=== PATIENT | female | born 1980 ===

== ENCOUNTER 2021-05-21 09:40 | Outpatient (REF) | payer OTHER, SELFPAY ==
[2021-05-21 09:54] LABS: MANUAL DIFF FLAG NO
[2021-05-21 10:36] LABS: Basophils Percent Auto 0.5 % (0-2); Eosinophils Absolute Auto 0.1 X10*3/uL (0.0-0.4); Eosinophils Percent Auto 1.7 % (0-4); Hematocrit 38.8 % (37.0-47.0); Hemoglobin 13.1 g/dl (12.0-16.0); Imm Gran Abs Auto 0.01 X10*3/uL (0.00-0.03); Imm Gran Pct Auto 0.2 % (0.0-0.4); Lymphocytes Absolute Auto 2.3 X10*3/uL (1.2-4.9); Lymphocytes Percent Auto 36.3 % (20-40); Mean Corpuscular HGB Conc 33.8 g/dl (31.0-35.0); Mean Corpuscular Hemoglobin 30.5 pg (27.0-33.0); Mean Corpuscular Volume 90.2 fL (80.0-98.0); Monocytes Absolute Auto 0.3 X10*3/uL (0.1-1.2); Monocytes Percent Auto 5.4 % (2-11); Neutrophils Absolute Auto 3.5 x10*3/uL (2.0-8.3); Neutrophils Percent Auto 55.9 % (45-73); Platelet Count 263 X10*3/uL (160-400); Red Cell Distribution Width 11.9 % (11.0-16.0); White Blood Count 6.3 X10*3/uL (4.8-10.8)
[2021-05-21 10:56] LABS: Alanine Aminotransferase 17 U/L (0-31); Albumin Level 4.1 g/dL (3.5-5.0); Alkaline Phosphatase 80 U/L (39-117); Anion Gap 13 (12-20); Aspartate Amino Transferase 15 U/L (5-31); Bilirubin Total 0.6 mg/dL (0.0-1.0); Blood Urea Nitrogen 15 mg/dL (9-16); Calcium 9.6 mg/dL (8.4-10.2); Carbon Dioxide 24 mmol/L (22-29); Chloride 105 mmol/L (96-108); Cholesterol 172 mg/dL; Estimated Glomerular Filt Rate > 60; Glucose Fasting 162 mg/dL (60-99); HDL Cholesterol 48 mg/dL; LDL Cholesterol Calculated 103 mg/dl; Potassium 4.7 mmol/L (3.3-5.1); Sodium 137 mmol/L (135-145); Total Protein 7.1 g/dL (6.5-8.0); Triglycerides 106 mg/dL
[2021-05-21 11:19] LABS: Thyroid Stimulating Hormone 1.46 uIU/mL (0.32-4.0)
== END 2021-05-21 09:41 | disposition home or self-care (01) ==
LOC: HO.LAB 09:40
PROVIDERS: PCP Internal Medicine; Visit Provider Internal Medicine
DX: Z00.00 Encounter for general adult medical examination without abnormal findings (principal); E03.9 Hypothyroidism, unspecified; E11.9 Type 2 diabetes mellitus without complications
CPT/HCPCS: 36415; 80053; 80061; 84443; 85025

== ENCOUNTER 2022-04-29 10:18 | Outpatient (REF) | payer OTHER, SELFPAY ==
[2022-04-29 11:22] LABS: Estimated Average Glucose 171 mg/dL; Hemoglobin A1c % 7.6 %
[2022-04-29 11:36] LABS: Anion Gap 16 (12-20); Blood Urea Nitrogen 8 mg/dL (9-16); Calcium 9.2 mg/dL (8.4-10.2); Carbon Dioxide 22 mmol/L (22-29); Chloride 104 mmol/L (96-108); Estimated Glomerular Filt Rate > 60; Glucose Random 144 mg/dL (60-115); Potassium 4.4 mmol/L (3.3-5.1); Sodium 138 mmol/L (135-145)
[2022-04-29 11:49] LABS: Thyroid Stimulating Hormone 1.67 uIU/mL (0.32-4.0)
== END 2022-04-29 10:19 | disposition home or self-care (01) ==
LOC: HO.LAB 10:18
PROVIDERS: PCP Internal Medicine; Visit Provider Internal Medicine
DX: Z00.00 Encounter for general adult medical examination without abnormal findings (principal); E11.9 Type 2 diabetes mellitus without complications; R51.9 Headache, unspecified
CPT/HCPCS: 36415; 80048; 83036; 84443

== ENCOUNTER → 2022-06-13 13:07 | Outpatient (BNVA) | payer OTHER, SELFPAY | PROVIDERS: PCP Internal Medicine; Visit Provider Dietitian, Registered | DX: E11.9 Type 2 diabetes mellitus without complications (principal); Z71.3 Dietary counseling and surveillance | CPT/HCPCS: 97802 ==

== ENCOUNTER 2022-08-01 08:06 | Outpatient (REF) | payer OTHER, SELFPAY ==
[2022-08-01 09:13] LABS: Estimated Average Glucose 183 mg/dL
[2022-08-01 09:27] LABS: Cholesterol 191 mg/dL; Glucose Fasting 189 mg/dL (60-99); HDL Cholesterol 46 mg/dL; LDL Cholesterol Calculated 108 mg/dl; Triglycerides 185 mg/dL
== END 2022-08-01 08:07 | disposition home or self-care (01) ==
LOC: HO.LAB 08:06
PROVIDERS: PCP Internal Medicine; Visit Provider Internal Medicine
DX: E78.5 Hyperlipidemia, unspecified (principal); E11.65 Type 2 diabetes mellitus with hyperglycemia
CPT/HCPCS: 36415; 80061; 82947; 83036

== ENCOUNTER 2022-09-22 15:41 | Outpatient (REF) | payer OTHER, SELFPAY ==
--- NOTE | ~2022-09-22 | MM_ITS ---
EXAMINATION: MM SCREENING DIGITAL BREAST TOMOSYNTHESIS, BILATERAL CLINICAL INFORMATION: Screening. Asymptomatic. The lifetime risk of breast cancer based on the Tyrer-Cuzick Model is 8%. COMPARISON: Mammography: 06/26/2019 (baseline) TECHNIQUE: Digital breast tomosynthesis is performed in both the craniocaudal and mediolateral oblique views along with computer-aided detection (CAD). Synthesized 2D images are generated from the tomosynthesis. FINDINGS: There are scattered areas of fibroglandular density (ACR BI-RADS breast composition Category b). Parenchymal pattern is similar to prior baseline exam and there is no interval mass or architectural abnormality or developing density. The axilla and skin contours are unremarkable. Again, there are a few scattered benign round and rim calcifications. Right breast has new loosely grouped benign appearing round calcifications posterior 1:00 position. Patient will be recalled to fully characterize with magnification views. MM/MM tomosynthesis screening BI IMPRESSION: Right: -New loosely grouped benign appearing round calcifications posterior 1:00 Left: -No mammographic evidence of malignancy. ASSESSMENT: BI-RADS 0: Incomplete - Need Additional Imaging Evaluation RECOMMENDATION: 1. Additional views right breast (magnification CC, magnification LM). 2. Radiology department staff will contact the patient for additional imaging. This patient's information was entered into a reminder system with a target due date for their next mammogram.
== END 2022-09-22 15:42 | disposition home or self-care (01) ==
LOC: HO.MAMMO 15:41
PROVIDERS: Visit Provider Internal Medicine
DX: Z12.31 Encounter for screening mammogram for malignant neoplasm of breast (principal)
CPT/HCPCS: 77063; 77067

== ENCOUNTER 2022-10-06 13:34 | Outpatient (REF) | payer OTHER, SELFPAY ==
--- NOTE | ~2022-10-06 | MM_ITS ---
EXAMINATION: MM DIAGNOSTIC DIGITAL MAMMOGRAPHY, RIGHT CLINICAL INFORMATION: Recall from screening for new loosely grouped benign-appearing round calcifications mid to posterior 1:00 position. COMPARISON: Mammography: 09/22/2022 (BI-RADS 0), 06/26/2019 (baseline). TECHNIQUE: Digital mammography is performed in the following views: Magnification right CC, magnification right LM. FINDINGS: There are scattered areas of fibroglandular density (ACR BI-RADS breast composition Category b). The additional magnification views show loosely grouped round calcifications mid to posterior 1:00 position 5-8 number. Although no from 2019, chronicity is otherwise unknown. Results are provided to the patient and her spouse at time of visit. Calcifications are probably benign and will be reassessed again in 6 months to include magnification views. MM/MM added views RT IMPRESSION: Probable benign loosely grouped round calcifications mid to posterior 1:00 position right breast, new from 06/26/2019. ASSESSMENT: BI-RADS 3: Probably Benign RECOMMENDATION: Diagnostic right mammography in 6 months. This patient's information was entered into a reminder system with a target due date for their next mammogram.
== END 2022-10-06 13:35 | disposition home or self-care (01) ==
LOC: HO.MAMMO 13:34
PROVIDERS: PCP Internal Medicine; Visit Provider Internal Medicine
DX: R92.1 Mammographic calcification found on diagnostic imaging of breast (principal)
CPT/HCPCS: 77065

== ENCOUNTER 2022-10-30 07:28 | Outpatient (REF) | payer OTHER, SELFPAY ==
[2022-10-30 08:10] LABS: Estimated Average Glucose 163 mg/dL; Hemoglobin A1c % 7.3 %
[2022-10-30 08:15] LABS: Glucose Fasting 189 mg/dL (60-99)
== END 2022-10-30 07:29 | disposition home or self-care (01) ==
LOC: HO.LAB 07:28
PROVIDERS: PCP Internal Medicine; Visit Provider Internal Medicine
DX: R73.9 Hyperglycemia, unspecified (principal)
CPT/HCPCS: 36415; 82947; 83036

== ENCOUNTER 2022-11-27 07:40 | Outpatient (REF) | payer OTHER, SELFPAY ==
[2022-11-27 07:51] LABS: MANUAL DIFF FLAG NO
[2022-11-27 08:40] LABS: Basophils Percent Auto 0.7 % (0-2); Eosinophils Absolute Auto 0.1 X10*3/uL (0.0-0.4); Eosinophils Percent Auto 1.7 % (0-4); Hematocrit 37.3 % (37.0-47.0); Hemoglobin 12.4 g/dl (12.0-16.0); Imm Gran Abs Auto 0.01 X10*3/uL (0.00-0.03); Imm Gran Pct Auto 0.2 % (0.0-0.4); Lymphocytes Absolute Auto 2.2 X10*3/uL (1.2-4.9); Lymphocytes Percent Auto 40.3 % (20-40); Mean Corpuscular HGB Conc 33.2 g/dl (31.0-35.0); Mean Corpuscular Hemoglobin 30.2 pg (27.0-33.0); Mean Corpuscular Volume 90.8 fL (80.0-98.0); Mean Platelet Volume 9.7 fL (9.4-12.3); Monocytes Absolute Auto 0.4 X10*3/uL (0.1-1.2); Monocytes Percent Auto 6.5 % (2-11); Neutrophils Absolute Auto 2.7 x10*3/uL (2.0-8.3); Neutrophils Percent Auto 50.6 % (45-73); Platelet Count 262 X10*3/uL (160-400); Red Blood Count 4.11 X10*6/uL (4.20-5.50); Red Cell Distribution Width 12.2 % (11.0-16.0); White Blood Count 5.4 X10*3/uL (4.8-10.8)
[2022-11-27 09:31] LABS: Alanine Aminotransferase 19 U/L (0-31); Albumin Level 3.7 g/dL (3.5-5.0); Alkaline Phosphatase 92 U/L (39-117); Anion Gap 12 (12-20); Aspartate Amino Transferase 16 U/L (5-31); Bilirubin Total 0.4 mg/dL (0.0-1.0); Blood Urea Nitrogen 13 mg/dL (9-16); Calcium 9.1 mg/dL (8.4-10.2); Carbon Dioxide 27 mmol/L (22-29); Chloride 106 mmol/L (96-108); Cholesterol 190 mg/dL; Estimated Glomerular Filt Rate > 60; Glucose Fasting 175 mg/dL (60-99); HDL Cholesterol 50 mg/dL; LDL Cholesterol Calculated 115 mg/dl; Potassium 4.4 mmol/L (3.3-5.1); Sodium 141 mmol/L (135-145); Thyroid Stimulating Hormone 2.57 uIU/mL (0.32-4.0); Total Protein 6.6 g/dL (6.5-8.0); Triglycerides 127 mg/dL
[2022-11-28 15:17] LABS: Follicle Stimulating Hormone 9.6 mIU/mL
== END 2022-11-27 07:41 | disposition home or self-care (01) ==
LOC: HO.LAB 07:40
PROVIDERS: PCP Internal Medicine; Visit Provider Internal Medicine
DX: E78.5 Hyperlipidemia, unspecified (principal); R23.2 Flushing; E03.9 Hypothyroidism, unspecified; D64.9 Anemia, unspecified; N28.9 Disorder of kidney and ureter, unspecified
CPT/HCPCS: 36415; 80053; 80061; 83001; 83002; 84443; 85025

== ENCOUNTER 2023-01-15 11:39 | Outpatient (AMB) | payer OTHER, SELFPAY ==
--- NOTE | 2023-01-15 11:42 | A.OFFPC_ITS ---
Vital Signs 01/15/23 11:46 Height 5 ft 2 in Weight 170 lb 4 oz BMI 31.1 BP 120/80 Blood Pressure Location Lt brachial Position Sitting Intake Visit Reasons: Excessive body heat Intake Note: Patient is here today excessive body heat. 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 Required: No Field Control Inspector: Not Required per policy Accompanied by: Self / Same As Patient Allergies No Known Allergies Allergy (Verified 01/15/23 11:45) Medication List - Last Reconciled 01/15/23 by Modesto Pennington MD hydrochlorothiazide 12.5 mg PO DAILY lisinopril 10 mg PO DAILY lorazepam 1 mg PO BID PRN metformin 1,000 mg PO BID zolpidem (Ambien) 5 mg PO BEDTIME PRN Tobacco use date assessed: 01/15/23 Dental Screening Dental Screen Date: 01/15/23 Did you have a dental visit in the last 12 months?: Yes Did you have a dental problem in the last 6 months where you did not have access to dental care?: No Was dental information given to patient?: Patient has dentist HPI Excessive body heat HPI Details DM; compliant; A1C 7.4; would like to see [facility] Surgical History History of tubal ligation Family History Father No problems noted. Mother No problems noted. Social History (Updated 05/23/21 @ 10:15 by Karie Naqvi [facility]) Housing: House Alcohol intake: current Alcohol intake frequency: holidays/special occasions only Patient Tobacco Use Status: Never used Tobacco e-Cigarette/Vaping Use: Never Used Second Hand Smoke Exposure: No service: No Current occupational status: employed Current occupational exposures/hazards: No Cognitive needs: No Hearing needs: No Vision needs: No Questionnaire Thrive Questionnaire Date Thrive assessed: 08/15/22 Currently or been in a relationship where the following occur: no concerns reported GRAZYNA-7 AMB Questionnaire GRAZYNA-7 Date GRAZYNA - 7 assessed: 08/15/22 Source: Developed by Drs. Chase Muñoz, Cristal Urias, Luan Erickson and colleagues, with an educational angel luis from [employer]. Review of Systems Const Denies chills, Denies headache(s) and Denies weight loss ENT Denies headache(s) Card Denies chest pain, Denies syncope, Denies irregular heart rhythm and Denies dyspnea Resp Denies chest congestion, Denies cough and Denies dyspnea GI Denies abdominal pain, Denies change in stool character, Denies nausea and Denies vomiting Musc Denies deformity and Denies joint swelling Neuro Denies syncope and Denies headache(s) Physical exam (Primary Care) Vital Signs: Last Vital Signs BP 120/80 01/15/23 11:46 BMI result Body Mass Index 31.1 Tobacco/Smoking Status: Tobacco use Status Tobacco use date assessed 01/15/23 01/15/23 11:49 Patient Tobacco Use Status Never used Tobacco 01/15/23 11:49 e-Cigarette/Vaping Use Never Used 01/15/23 11:49 Thrive Assessment: Date of Thrive Assessment Date Thrive assessed 08/15/22 01/15/23 11:49 Currently or been in a relationship where the following occur: no concerns reported Const General: comfortable, no acute distress and alert Neck Neck: Yes no lymphadenopathy Thyroid: Thyroid normal Resp Effort & Inspection: normal respiratory effort Auscultation: clear to auscultation bilaterally Percussion: percussion normal Cardio Jugular venous distension: no JVD Palpation: normal PMI Rate: regular rate Rhythm: regular rhythm Heart sounds: S1 normal heart sound present and S2 normal heart sound present GI Inspection: Yes normal to inspection Palpation (GI): No hepatosplenomegaly present Skin General skin exam: no rashes or lesions noted Extrem General: Yes no clubbing, cyanosis or edema Assessment and Plan Assessment & Plan (1) T2DM (type 2 diabetes mellitus): Code(s): E11.9 - Type 2 diabetes mellitus without complications Plan: ref endo Orders: Referrals Endocrinology Referral E11.9 - Type 2 diabetes mellitus without complications Coding Level of Care Code Est Pt Level 3 (31281) Diagnoses T2DM (type 2 diabetes mellitus) E11.9
[2023-01-15 11:46] VITALS: BP 120/80; BMI 31.1
== END 2023-01-15 11:56 | disposition home or self-care (01) ==
PROVIDERS: PCP Internal Medicine; Visit Provider Internal Medicine
DX: E11.9 Type 2 diabetes mellitus without complications (principal)
CPT/HCPCS: 99213

== ENCOUNTER 2023-04-12 12:47 | Outpatient (REF) | payer OTHER, SELFPAY ==
--- NOTE | ~2023-04-12 | MM_ITS ---
EXAMINATION: MM DIAGNOSTIC DIGITAL BREAST TOMOSYNTHESIS, RIGHT CLINICAL INFORMATION: First 6 month follow-up right breast calcifications. COMPARISON: Mammography: 09/22/2022, 10/06/2022, 06/26/2019. TECHNIQUE: Digital right breast tomosynthesis is performed in both the craniocaudal and mediolateral oblique views along with computer-aided detection (CAD). Synthesized 2D images are generated from the tomosynthesis. In addition, spot magnification 2-D right CC and ML views were obtained. FINDINGS: There are scattered areas of fibroglandular density (ACR BI-RADS breast composition Category b). Loosely grouped calcifications are identified in the upper inner right breast, middle one third, which appear to be possibly dermal in origin on tomographic images. They have a punctate rounded appearance without any sign of tight grouping, pleomorphism, linear the or branching. These do not meet biopsy threshold. There are a few scattered similar calcifications in the breasts. These calcifications are considered benign. No further follow-up required. Otherwise, there are no suspicious masses, suspicious grouped calcifications, or areas of architectural distortion in the right breast. The parenchymal pattern is stable from prior exams. MM/MM tomosynthesis diagnostic RT IMPRESSION: There is no evidence of malignancy in the right breast. There are benign calcifications which are likely skin related. No further follow-up required. Recommend returning to screening mammography bilaterally. ASSESSMENT: BI-RADS BI-RADS 2 - Benign Findings RECOMMENDATION: 1 year F/U Results were provided to the patient at time of visit by the technologist. This patient's information was entered into a reminder system with a target due date for their next mammogram.
== END 2023-04-12 12:48 | disposition home or self-care (01) ==
LOC: HO.MAMMO 12:47
PROVIDERS: PCP Internal Medicine; Visit Provider Internal Medicine
DX: R92.1 Mammographic calcification found on diagnostic imaging of breast (principal)
CPT/HCPCS: 77061; 77065

== ENCOUNTER → 2023-04-12 13:00 | Outpatient (BNV) | payer OTHER, SELFPAY | PROVIDERS: PCP Internal Medicine; Visit Provider Radiology Diagnostic Radiology | DX: R92.1 Mammographic calcification found on diagnostic imaging of breast (principal) | CPT/HCPCS: 77061; 77065 ==

== ENCOUNTER 2023-09-28 15:44 | Outpatient (REF) | payer OTHER, SELFPAY | END 2023-09-28 15:45 | disposition home or self-care (01) | LOC: HO.MAMMO 15:44 | PROVIDERS: PCP Internal Medicine; Visit Provider Internal Medicine | DX: Z12.31 Encounter for screening mammogram for malignant neoplasm of breast (principal) | CPT/HCPCS: 77063; 77067 ==

== ENCOUNTER → 2023-09-28 16:00 | Outpatient (BNV) | payer OTHER, SELFPAY | PROVIDERS: PCP Internal Medicine; Visit Provider Radiology Diagnostic Radiology | DX: Z12.31 Encounter for screening mammogram for malignant neoplasm of breast (principal) | CPT/HCPCS: 77063; 77067 ==

== ENCOUNTER 2024-02-20 08:27 | Outpatient (AMB) | payer OTHER, SELFPAY ==
[2024-02-20 08:30] VITALS: BP 130/72; PULSE 103; O2SAT 97; BMI 30.5
--- NOTE | 2024-02-20 08:30 | A.OFFPC_ITS ---
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: No Accompanied by: Self / Same As Patient Allergies No Known Allergies Allergy (Verified 02/20/24 08:35) Medication List - Last Reconciled 02/21/24 by Modesto Pennington MD empagliflozin (Jardiance) 10 mg PO DAILY hydrochlorothiazide 12.5 mg PO DAILY lisinopril 10 mg PO DAILY lorazepam 1 mg PO BID PRN metformin 1,000 mg PO BID zolpidem (Ambien) 5 mg PO BEDTIME PRN Tobacco use date assessed: 02/20/24 Dental Screening Dental Screen Date: 02/20/24 Did you have a dental visit in the last 12 months?: Yes Did you have a dental problem in the last 6 months where you did not have access to dental care?: No Was dental information given to patient?: Patient has dentist HPI Palpitations&StomachPain HPI Details occasional palpitations for a month; ruq abd pain PFSH Surgical History History of tubal ligation Family History Father No problems noted. Mother No problems noted. Social History (Updated 05/23/21 @ 10:15 by Karie Naqvi [facility]) Housing: House Alcohol intake: current Alcohol intake frequency: holidays/special occasions only Patient Tobacco Use Status: Never used Tobacco Tobacco use type: Cigarette e-Cigarette/Vaping Use: Never Used Second Hand Smoke Exposure: No service: No Current occupational status: employed Current occupational exposures/hazards: No Cognitive needs: No Hearing needs: No Vision needs: No Questionnaire PHQ-9 Over the last 2 weeks, how often have you been bothered by any of the following problems? 1. Little interest or pleasure in doing things: not at all 2. Feeling down, depressed, or hopeless: not at all 3. Trouble falling or staying asleep, or sleeping too much: not at all 4. Feeling tired or having little energy: not at all 5. Poor appetite or overeating: not at all 6. Feeling bad about yourself - or that you are a failure or have let yourself or your family down: not at all 7. Trouble concentrating on things, such as reading the newspaper or watching television: not at all 8. Moving or speaking so slowly that other people could have noticed. Or the opposite - being so fidgety or restless that you have been moving around a lot more than usual: not at all 9. Thoughts that you would be better off or of hurting yourself in some way: not at all Total score: 0 04108 - PHQ-9 Billing: Yes Source: Developed by Drs. Chase Muñoz, Cristal Urias, Luan Erickson and colleagues, with an educational angel luis from [employer]. Thrive Questionnaire Date Thrive assessed: 02/20/24 I am a: Patient What is your living situation today?: I have a steady place to live Within the past 12 months, did the food you bought not last and you didn't have the money to get more?: Never true Within the past 12 months, did you worry whether your food would run out before you got money to buy more?: Never true THRIVE Score: 0 AUDIT C Alcohol Use Questionnaire (AUDIT-C) 1. How often do you have a drink containing alcohol?: Monthly or less 2. How many drinks containing alcohol do you have on a typical day when you are drinking?: 3 or 4 3. How often do you have six or more drinks on one occasion?: Never Total Score: 2 Score Reviewed/Action Taken: Yes GRAZYNA-7 AMB Questionnaire GRAZYNA-7 Date GRAZYNA - 7 assessed: 02/20/24 Feeling nervous, anxious, or on edge: 1 = Several days Not being able to stop or control worryin = Several days Worrying too much about different things: 1 = Several days Trouble relaxin = Several days Being so restless that it is hard to sit still: 2 = More than half the days Becoming easily annoyed or irritable: 2 = More than half the days Feeling afraid as if something awful might happen: 2 = More than half the days Total GRAZYNA-7 score (0-4 normal; 5-9 mild; 10-14 moderate; 15-21 severe): 10 Source: Developed by Drs. Chase Muñoz, Cristal Urias, Luan Erickson and colleagues, with an educational angel luis from [employer]. GRAZYNA-7 Assessment Billing GRAZYNA-7 Assessment Tool: GRAZYNA-7 Assessment 28390 Review of Systems Const Denies chills, Denies headache(s) and Denies weight loss ENT Denies headache(s) Card Denies chest pain, Denies syncope and Denies dyspnea Resp Denies chest congestion, Denies cough and Denies dyspnea GI Denies change in stool character, Denies nausea and Denies vomiting Musc Denies deformity and Denies joint swelling Neuro Denies syncope and Denies headache(s) Physical exam (Primary Care) Vital Signs: Last Vital Signs Pulse 103 H 02/20/24 08:30 BP 130/72 02/20/24 08:30 Pulse Ox 97 02/20/24 08:30 Oxygen Delivery Method Room Air 02/20/24 08:30 BMI result Body Mass Index 30.5 Tobacco/Smoking Status: Tobacco use Status Tobacco use date assessed 02/20/24 02/20/24 08:41 Patient Tobacco Use Status Never used Tobacco 02/20/24 08:32 Tobacco use type Cigarette 02/20/24 08:41 e-Cigarette/Vaping Use Never Used 02/20/24 08:32 PHQ-9: PHQ-9 Score PHQ-9: Total score 0 02/20/24 08:41 Thrive Assessment: Date of Thrive Assessment Date Thrive assessed 02/20/24 02/20/24 08:41 Results AMB Hemoglobin A1c AMB Hemoglobin A1c 7.6 % Last Edit by Cordelia Paz CMA on 02/20/24 08:47 Results Reviewed Results Reviewed: Laboratory Last Values Hgb A1c (Clinic) 7.6 % (4.0-6.0) H 02/20/24 08:47 Assessment and Plan Assessment & Plan (1) Intermittent palpitations: Code(s): R00.2 - Palpitations Plan: EKG and labs; probably benign Orders: Orders US abdomen complete 02/20/24 R10.9 - Unspecified abdominal pain ECG 12 lead EKG 02/20/24 R00.2 - Palpitations AMB Hemoglobin A1c 02/20/24 E11.9 - Type 2 diabetes mellitus without complications Thyroid Stimulating Hormone 02/20/24 Z13.29 - Encounter for screening for other suspected endocrine disorder Medications: Refilled lisinopril 10 mg PO DAILY 90 tabs 0RF lorazepam 1 mg PO BID PRN 20 tabs 0RF anxiety zolpidem (Ambien) 5 mg PO BEDTIME PRN 30 tabs 3RF sleep metformin 1,000 mg PO BID 180 tabs 8RF Coding Level of Care Code Est Pt Level 3 (26790) Diagnoses Intermittent palpitations R00.2 Additional Codes GRAZYNA-7 Assessment Billing - GRAZYNA-7 Assessment Tool: GRAZYNA-7 Assessment 59446 ([id number])
== END 2024-02-20 08:59 | disposition home or self-care (01) ==
PROVIDERS: PCP Internal Medicine; Visit Provider Internal Medicine
DX: E11.9 Type 2 diabetes mellitus without complications (principal)
CPT/HCPCS: 83036; 99213

== ENCOUNTER 2024-03-01 09:35 | Outpatient (REF) | payer OTHER, SELFPAY ==
[2024-03-01 11:13] LABS: Thyroid Stimulating Hormone 1.29 uIU/mL (0.32-4.0)
== END 2024-03-01 09:36 | disposition home or self-care (01) ==
LOC: HO.LAB 09:35
PROVIDERS: PCP Internal Medicine; Visit Provider Internal Medicine
DX: Z13.29 Encounter for screening for other suspected endocrine disorder (principal)
CPT/HCPCS: 36415; 84443

== ENCOUNTER 2024-03-04 19:22 | Emergency (ER) | payer OTHER, SELFPAY ==
--- NOTE | 2024-03-04 | ECG_ITS ---
Test Reason : CHEST PAIN Blood Pressure : / mmHG Vent. Rate : 093 BPM Atrial Rate : 093 BPM P-R Int : 152 ms QRS Dur : 066 ms QT Int : 344 ms P-R-T Axes : 026 054 055 degrees QTc Int : 427 ms Normal sinus rhythm Normal ECG When compared with ECG of 24-APR-2004 16:01, T wave amplitude has decreased in Anterior leads Referred By: Generic ED Physician Electronically Signed By:ASHA WESTFALL
--- NOTE | ~2024-03-04 | CT_ITS ---
EXAMINATION: CT ABDOMEN AND PELVIS WITH CONTRAST CLINICAL INFORMATION: Reason for Exam RUQ pain, postprandial, hx cholecystectomy COMPARISON: None available. TECHNIQUE: Multidetector volumetric images were obtained from the superior aspect of the liver through the pubic symphysis following administration 85 mL of Omnipaque 350 intravenous contrast. Sagittal and coronal reformatted images were obtained on the technologist's workstation. Oral contrast: No This CT examination was performed using dose optimization techniques as appropriate, variously including the following: *Automated exposure control *Adjustment of mA and/or kV according to patient size (this includes techniques or standardized protocols for targeted exams where dose is matched to indication/reason for exam; i.e. extremities or head) *Use of iterative reconstruction technique DLP: 722 mGy-cm FINDINGS: LUNG BASES: Minimal bibasilar atelectasis. A few scattered nodular foci are present along the pleura measuring up to 6 x 3 mm (average diameter 4.5 mm) on the left on image 142/[id number]. There is also a small nodule along the right minor fissure suggestive of a lymph node. LIVER, GALLBLADDER, AND BILIARY TREE: The liver is normal in size, shape, and attenuation. No focal hepatic lesion or biliary ductal dilatation is present. Patient is status post cholecystectomy. PANCREAS: Unremarkable. SPLEEN: Unremarkable. ADRENAL GLANDS: Unremarkable. KIDNEYS AND URETERS: Bilateral nephrograms are symmetric. No hydronephrosis or obstructing calculus identified. BLADDER: Minimally distended and suboptimally evaluated. GASTROINTESTINAL TRACT: No evidence of bowel obstruction. Colonic diverticulosis without convincing diverticulitis. The appendix is unremarkable. No free fluid or free air is seen. ABDOMINAL WALL: No significant hernia is appreciated. LYMPH NODES: Normal. VASCULAR: Unremarkable. PELVIC VISCERA: Unremarkable. OSSEOUS STRUCTURES: Multilevel degenerative changes in the spine. Nonspecific sclerotic foci in the T10 and L4 vertebral bodies. CT/CT abdomen pelvis w IV con IMPRESSION: 1. No acute findings identified in the abdomen/pelvis. Status post cholecystectomy. 2. Nonspecific sclerotic foci in the T10 and L4 vertebral bodies which may represent bone islands. In the proper clinical setting, sclerotic metastatic foci could also have this appearance. 3. Few small subpleural nodular foci in the lungs, nonspecific. According to the UPDATED 2017 Fleischner Society recommendations, the advised follow-up imaging for solid nodules < 6 mm is: LOW RISK PATIENT: No routine follow-up. HIGH RISK PATIENT: Optional CT at 12 months. Electronically signed by: Brandon Apple MD 03/05/2024 03:06 AM EDT RP
[2024-03-04 19:28] VITALS: BP 150/103; PULSE 89; RESP 18; TEMP 36.6; O2SAT 98
--- NOTE | 2024-03-04 19:34 | ED.GENADULT ---
HPI - General Adult General Chief complaint: General Medical Stated complaint: chest feels tight/sob/palpitations/ belly pain Time Seen by Provider: 03/04/24 23:27 Source: patient Mode of arrival: ambulatory Limitations: no limitations History of Present Illness HPI narrative: Patient is a 43-year-old female who presents emergency department for evaluation of 2-3 weeks with chest tightness, palpitations, abdominal pain, nausea. She states that she experiences these symptoms postprandial approximately 15-20 minutes. It starts with the chest tightness and pain that radiates to the epigastric in her right upper quadrant with diffuse abdominal bloating. Developed nausea but has not experienced any vomiting. Admits to subsequent palpitations but she thinks that this is due to anxiety regarding the degree of her pain. She admits to a history of cholecystectomy approximately 10 years ago. Related Data Home Medications ?Medication ?Instructions ?Recorded ?Confirmed empagliflozin 10 mg tablet 10 mg PO DAILY 02/20/24 02/21/24 (Jardiance) Previous Rx's ?Medication ?Instructions ?Recorded hydrochlorothiazide 12.5 mg capsule 12.5 mg PO DAILY #30 caps 01/22/24 lisinopril 10 mg tablet 10 mg PO DAILY #90 tabs 02/20/24 metformin 1,000 mg tablet 1,000 mg PO BID #180 tabs 02/20/24 zolpidem 5 mg tablet (Ambien) 5 mg PO BEDTIME PRN sleep #30 tabs 02/20/24 lorazepam 1 mg tablet 1 mg PO BID PRN anxiety #20 tabs 02/27/24 Allergies Allergy/AdvReac Type Severity Reaction Status Date / Time No Known Allergies Allergy Verified 03/04/24 19:36 Review of Systems Review of Systems: Yes all other systems are reviewed and are negative [facility] Past Medical History Attestation statement: The following information was validated with the patient. Source: old records reviewed Surgical History History of tubal ligation Family History Family History Father No problems noted. Mother No problems noted. Social History Social History (Updated 05/23/21 @ 10:15 by Karie Naqvi Junior) Housing: House Alcohol intake: current Alcohol intake frequency: does not drink Patient Tobacco Use Status: Never used Tobacco Tobacco use type: Cigarette Smoked in Last 30 Days: No e-Cigarette/Vaping Use: Never Used Second Hand Smoke Exposure: No Use of substances other than those prescribed or required for medical reasons: No Advance Directives: No Advance Directives Information Provided: No Do you have a plan to hurt others: No Plan service: No Current occupational status: employed Current occupational exposures/hazards: No Cognitive needs: No Hearing needs: No Vision needs: No Physical Exam ED Vital Signs: Vital Signs - 24 hr 03/04/24 19:28 03/04/24 22:27 03/05/24 00:11 Temperature 97.9 F 97.7 F Pulse Rate 89 84 77 Respiratory Rate 18 18 18 Blood Pressure 150/103 H 148/98 H 128/77 Pulse Oximetry 98 99 98 Oxygen Delivery Method Room Air Room Air 03/05/24 02:45 03/05/24 06:23 Temperature 97.5 F 97.6 F Pulse Rate 85 67 Respiratory Rate 18 18 Blood Pressure 129/84 117/82 Pulse Oximetry 97 97 Oxygen Delivery Method Room Air Room Air BMI result Body Mass Index 30.0 Appearance: Alert.?Oriented to person, place and time. No acute distress.?Normal affect. Eyes: Pupils equal, round and reactive to light.? ENT: Pharynx normal.?? Neck: Normal inspection.? Neck supple.?? CVS: Heart sounds normal. Normal heart rate and rhythm.? Pulses normal.?? Respiratory: No respiratory distress.? Lung sounds clear to auscultation bilaterally?? Abdomen: Soft right upper quadrant tenderness upon palpation Normoactive bowel sounds. No pulsatile mass.?? Skin: Skin warm and dry.? Normal skin color.? Extremities: No lower extremity edema.? No calf ttp? Neuro: Moves all extremities spontaneously. Sensation intact bilaterally. Ambulates with normal steady gait. Course Course Course Narrative: This is an RME done by BRANDON Garrison: Additional HPI, ROS, PE not included below will be deferred to primary provider. 43yo F with PMHx HTN, T2DM presenting with chest pain/tightness and palpitations intermittently over past few weeks. Precipitated by eating. Appearance: Alert.? Oriented X3.? No acute cardiopulmonary distress distress.? Head: Normocephalic, atraumatic CVS: Pulses normal.? Respiratory: No respiratory distress.? Skin: ? Normal skin color. Neuro: Oriented X 3.? Reevaluation(s) Reevaluation #1: Patient signed out to ED attending Dr. Lyons pending CT AP Time: 01:55 Reevaluation #2: CT abdomen pelvis shows no acute pathology, nonspecific lung nodule patient was made aware of a to follow-up with her PCP. Time: 06:55 Medications Administered Discontinued Medications Generic Name Dose Route Start Last Admin Trade Name Freq PRN Reason Stop Dose Admin Sodium Chloride 1,000 mls @ 999 mls/hr 03/04/24 23:45 03/05/24 01:25 Ns IV 03/05/24 00:45 Infused .Q1H1M CHELY Infusion Iohexol 85 ml 03/05/24 00:38 03/05/24 00:39 Iohexol 350 Mg/Ml 100 Ml Infus..Btl IV 03/05/24 00:39 85 ml ONCE ONE Administration Pantoprazole Sodium 40 mg 03/04/24 23:51 03/05/24 00:02 Pantoprazole Sodium 40 Mg/10 Ml Vial IVPUSH 03/04/24 23:52 40 mg ONCE ONE Administration Medical Decision Making Medical Decision Making MDM Narrative: Patient is a 43-year-old female past medical history of tubal ligation, type 2 diabetes, hypertension presenting to emergency department for evaluation of chest pain palpitations abdominal pain and nausea as per HPI. On review of medical record she was evaluated by her primary care doctor, Dr. Salvador most recently 8 10/21/2023 for evaluation of palpitations and right upper quadrant abdominal pain outpatient ultrasound was ordered at that time has yet to be completed. On evaluation of serum labs obtained prior to my assumption of care CBC is without leukocytosis anemia or thrombocytopenia. No electrolyte derangement. No DINESH. Non-anion gap hyperglycemia; random glucose 171. LFTs lipase within normal range. High sensitive troponin below detectable limits, EKG revealing normal sinus rhythm with ventricular rate of 93, QTC 427, no ST elevation, no ST depression, no T-wave inversion, unlikely secondary to ACS given duration of symptoms.. Viral panel is negative. Given history of cholecystectomy, plan to obtain CT of the abdomen and pelvis for further evaluation, concern that ultrasound in the not visualize CBD stone, and may have physiologic dilation as she has S/P cholecystectomy. At this time she declines any analgesic or antiemetic. This case with ED attending Dr. Acosta who agrees with plan of care. Differential Diagnosis Differential Diagnoses: The differential diagnosis associated with the presentation includes (Gastritis, PUD, CBD stone, hepatitis, pneumonia. Wells negative, unlikely pulmonary embolism) Admission/Observation Consideration of admission/observation: Escalation of care including admission/observation considered Lab Data MDM Lab Attestation statement: I reviewed the patient's lab results. (Narrative above) 03/04/24 19:45 03/04/24 19:45 Labs: Lab Results 03/04/24 Range/Units 19:45 WBC 6.8 (4.8-10.8) X10*3/uL RBC 4.42 (4.20-5.50) X10*6/uL Hgb 13.3 (12.0-16.0) g/dl Hct 38.4 (37.0-47.0) % MCV 86.9 (80.0-98.0) fL MCH 30.1 (27.0-33.0) pg MCHC 34.6 (31.0-35.0) g/dl RDW 12.6 (11.0-16.0) % Plt Count 255 (160-400) X10*3/uL MPV 9.7 (9.4-12.3) fL Immature Gran % (Auto) 0.1 (0.0-0.4) % Neut % (Auto) 47.6 (45-73) % Lymph % (Auto) 44.3 H (20-40) % Kinney % (Auto) 6.4 (2-11) % Eos % (Auto) 0.9 (0-4) % Baso % (Auto) 0.7 (0-2) % Lymph # (Auto) 3.0 (1.2-4.9) X10*3/uL Kinney # (Auto) 0.4 (0.1-1.2) X10*3/uL Eos # (Auto) 0.1 (0.0-0.4) X10*3/uL Baso # (Auto) 0.1 (0.0-0.2) X10*3/uL Abs Immat Gran (auto) 0.01 (0.00-0.03) X10*3/uL Absolute Neuts (auto) 3.2 (2.0-8.3) x10*3/uL Absolute Nucleated RBC 0.000 (0.0-0.012) X10*3/uL Nucleated RBC % (auto) 0.0 (0.0-0.2) /100WBC PT 11.0 L (11.1-13.3) SEC INR 0.9 (0.9-1.1) Sodium 138 (135-145) mmol/L Potassium 3.9 (3.3-5.1) mmol/L Chloride 103 (96-108) mmol/L Carbon Dioxide 28 (22-29) mmol/L Anion Gap 11 L (12-20) BUN 13 (9-16) mg/dL Creatinine 0.68 (0.5-1.4) mg/dL Estim Creat Clear Calc 98.6 Estimated GFR > 60 Random Glucose 171 H (60-115) mg/dL Calcium 10.0 D (8.4-10.2) mg/dL Magnesium 2.0 (1.6-2.6) mg/dL Total Bilirubin 0.4 (0.0-1.0) mg/dL AST 22 (5-31) U/L ALT 22 (0-31) U/L Alkaline Phosphatase 84 (39-117) U/L Troponin I High Sens < 2.7 (<3.5-17.0) ng/L Total Protein 7.2 (6.5-8.0) g/dL Albumin 4.1 (3.5-5.0) g/dL Lipase 30 (8-78) U/L Beta HCG, Quant < 2 mIU/mL Influenza Type A (PCR) NEGATIVE (Negative) Influenza Type B (PCR) NEGATIVE (Negative) RSV RNA Qual (PCR) NEGATIVE (Negative) SARS-CoV-2 RNA (RT-PCR) NEGATIVE (Negative) Radiology Impression Discussion of test interpretation with radiology: I have reviewed the radiologist's reading. Independent Historian Clinical information obtained from an independent historian. History obtained from or confirmed by: Spouse External Record Review External record reviewed: Outpatient record Tests considered The following testing was considered but not selected: See narrative above, ultrasound deferred Prescription Management I considered prescription management with: Pain Medication Discharge Plan Discharge Clinical Impression: Abdominal pain, Lung nodule Patient Disposition: Home, Self-Care Instructions: Abdominal Pain (ED), Pulmonary Nodules (ED) Prescriptions: No Action hydrochlorothiazide 12.5 mg capsule 12.5 mg PO DAILY Qty: 30 8RF lorazepam 1 mg tablet 1 mg PO BID PRN (Reason: anxiety) Qty: 20 0RF Jardiance 10 mg tablet 10 mg PO DAILY lisinopril 10 mg tablet 10 mg PO DAILY Qty: 90 0RF metformin 1,000 mg tablet 1,000 mg PO BID Qty: 180 8RF zolpidem [Ambien] 5 mg tablet 5 mg PO BEDTIME PRN (Reason: sleep) Qty: 30 3RF Referrals: Modesto Pennington MD [Primary Care Provider] - Print Language: Lithuanian
[2024-03-04 19:49] LABS: MANUAL DIFF FLAG NO
[2024-03-04 19:57] LABS: INTERNATIONAL NORM RATIO 0.9 (0.9-1.1)
[2024-03-04 20:01] LABS: Basophils Absolute Auto 0.1 X10*3/uL (0.0-0.2); Basophils Percent Auto 0.7 % (0-2); Eosinophils Absolute Auto 0.1 X10*3/uL (0.0-0.4); Eosinophils Percent Auto 0.9 % (0-4); Hematocrit 38.4 % (37.0-47.0); Hemoglobin 13.3 g/dl (12.0-16.0); Imm Gran Abs Auto 0.01 X10*3/uL (0.00-0.03); Imm Gran Pct Auto 0.1 % (0.0-0.4); Lymphocytes Percent Auto 44.3 % (20-40); Mean Corpuscular HGB Conc 34.6 g/dl (31.0-35.0); Mean Corpuscular Hemoglobin 30.1 pg (27.0-33.0); Mean Corpuscular Volume 86.9 fL (80.0-98.0); Mean Platelet Volume 9.7 fL (9.4-12.3); Monocytes Absolute Auto 0.4 X10*3/uL (0.1-1.2); Monocytes Percent Auto 6.4 % (2-11); Neutrophils Absolute Auto 3.2 x10*3/uL (2.0-8.3); Neutrophils Percent Auto 47.6 % (45-73); Platelet Count 255 X10*3/uL (160-400); Red Blood Count 4.42 X10*6/uL (4.20-5.50); Red Cell Distribution Width 12.6 % (11.0-16.0); White Blood Count 6.8 X10*3/uL (4.8-10.8)
[2024-03-04 20:08] LABS: Alanine Aminotransferase 22 U/L (0-31); Albumin Level 4.1 g/dL (3.5-5.0); Alkaline Phosphatase 84 U/L (39-117); Anion Gap 11 (12-20); Aspartate Amino Transferase 22 U/L (5-31); Bilirubin Total 0.4 mg/dL (0.0-1.0); Blood Urea Nitrogen 13 mg/dL (9-16); Carbon Dioxide 28 mmol/L (22-29); Chloride 103 mmol/L (96-108); Creatinine Clr Calc Pharmacy 98.6; Estimated Glomerular Filt Rate > 60; Glucose Random 171 mg/dL (60-115); Lipase 30 U/L (8-78); Potassium 3.9 mmol/L (3.3-5.1); Sodium 138 mmol/L (135-145); Total Protein 7.2 g/dL (6.5-8.0)
[2024-03-04 20:20] LABS: HCG Quantitative < 2 mIU/mL; Troponin-I High Sensitivity < 2.7 ng/L (<3.5-17.0)
[2024-03-04 20:30] LABS: Influenza A PCR NEGATIVE (Negative); Influenza B PCR NEGATIVE (Negative); Resp Syncy Virus RNA Qual PCR NEGATIVE (Negative); SARS COV2 PCR INHOUSE NEGATIVE (Negative)
[2024-03-04 22:27] VITALS: BP 148/98; PULSE 84; RESP 18; O2SAT 99
[2024-03-05] MEDS: 0.9 % Sodium Chloride 1,000 ML 999 ML IV (00:02)
[2024-03-05] MEDS: Pantoprazole Sodium 40 MG/10 ML VIAL IVPUSH (00:02)
--- NOTE | 2024-03-05 00:05 | PC.NURSE ---
Pt ca&ox4, no signs of distress Pt reports 6/10 cp, abd pain Pt medicated per aug Ct with pt at this time. Pts family at bedside Plan of care ongoing.
[2024-03-05 00:11] VITALS: BP 128/77; PULSE 77; RESP 18; TEMP 36.5; O2SAT 98
[2024-03-05] MEDS: iohexoL 350 MG/ML 100 ML INFUS..BTL 85 ML IV (00:39)
[2024-03-05 02:45] VITALS: BP 129/84; PULSE 85; RESP 18; TEMP 36.4; O2SAT 97
[2024-03-05 06:23] VITALS: BP 117/82; PULSE 67; RESP 18; TEMP 36.4; O2SAT 97
[2024-03-05 08:00] VITALS: BP 120/84; PULSE 65; RESP 18; TEMP 36.8; O2SAT 98
[2024-03-05 09:15] VITALS: BP 117/82; PULSE 67; RESP 18; TEMP 36.8; O2SAT 97
== END 2024-03-05 09:18 | disposition home or self-care (01) ==
PROVIDERS: Physician Assistant; Emergency Provider Internal Medicine; PCP Internal Medicine
DX: R10.11 Right upper quadrant pain (principal); R91.1 Solitary pulmonary nodule; Z03.818 Encounter for observation for suspected exposure to other biological agents ruled out; E11.9 Type 2 diabetes mellitus without complications; I10 Essential (primary) hypertension; Z79.84 Long term (current) use of oral hypoglycemic drugs; Z79.899 Other long term (current) drug therapy
CPT/HCPCS: 0241U; 36415; 74177; 80053; 83690; 83735; 84484; 84702; 85025; 85610; 93005; 96361; 96374; 99284; 99285; J2470; Q9967

== ENCOUNTER 2024-03-24 14:30 | Outpatient (AMB) | payer OTHER, SELFPAY ==
--- NOTE | 2024-03-24 14:32 | A.OFFPC_ITS ---
Vital Signs 03/24/24 14:33 Height 5 ft 2 in Weight 167 lb BMI 30.5 BP 140/72 H Blood Pressure Location Lt brachial Position Sitting Pulse 88 Pulse Source Pulse Oximeter Pulse Oximetry (%) 97 Oxygen Delivery Method Room Air Intake Visit Reasons: [facility] 03/05 Chest & Abdom Pain Grain Combiner Required: No Accompanied by: Self / Same As Patient Allergies No Known Allergies Allergy (Verified 03/24/24 14:34) Medication List - Last Reconciled 03/25/24 by Modesto Pennington MD empagliflozin (Jardiance) 10 mg PO DAILY hydrochlorothiazide 12.5 mg PO DAILY lisinopril 10 mg PO DAILY lorazepam 1 mg PO BID PRN metformin 1,000 mg PO BID zolpidem (Ambien) 5 mg PO BEDTIME PRN Tobacco use date assessed: 02/20/24 Dental Screening Dental Screen Date: 02/20/24 HPI [facility] 03/05 Chest & Abdom Pain HPI Details ER visit with RUQ abd pain; had a cholecystectomy in the past; CT unremarkable [facility] Surgical History History of tubal ligation Family History Father No problems noted. Mother No problems noted. Social History (Updated 05/23/21 @ 10:15 by Karie Naqvi [facility]) Housing: House Alcohol intake: current Alcohol intake frequency: does not drink Patient Tobacco Use Status: Never used Tobacco Tobacco use type: Cigarette e-Cigarette/Vaping Use: Never Used Second Hand Smoke Exposure: No service: No Current occupational status: employed Current occupational exposures/hazards: No Cognitive needs: No Hearing needs: No Vision needs: No Questionnaire PHQ-9 Over the last 2 weeks, how often have you been bothered by any of the following problems? 1. Little interest or pleasure in doing things: not at all 2. Feeling down, depressed, or hopeless: not at all 3. Trouble falling or staying asleep, or sleeping too much: not at all 4. Feeling tired or having little energy: not at all 5. Poor appetite or overeating: not at all 6. Feeling bad about yourself - or that you are a failure or have let yourself or your family down: not at all 7. Trouble concentrating on things, such as reading the newspaper or watching television: not at all 8. Moving or speaking so slowly that other people could have noticed. Or the opposite - being so fidgety or restless that you have been moving around a lot more than usual: not at all 9. Thoughts that you would be better off or of hurting yourself in some way: not at all Total score: 0 66088 - PHQ-9 Billing: Yes Source: Developed by Drs. Chase Muñoz, Cristal Urias, Luan Erickson and colleagues, with an educational angel luis from [employer]. Thrive Questionnaire Date Thrive assessed: 02/20/24 AUDIT C Alcohol Use Questionnaire (AUDIT-C) 1. How often do you have a drink containing alcohol?: Monthly or less 2. How many drinks containing alcohol do you have on a typical day when you are drinking?: 3 or 4 3. How often do you have six or more drinks on one occasion?: Never Total Score: 2 Score Reviewed/Action Taken: Yes GRAZYNA-7 AMB Questionnaire GRAZYNA-7 Date GRAZYNA - 7 assessed: 02/20/24 Source: Developed by Drs. Chase Muñoz, Cristal Urias, Luan Erickson and colleagues, with an educational angel luis from [employer]. Review of Systems Const Denies chills, Denies headache(s) and Denies weight loss ENT Denies headache(s) Card Denies chest pain, Denies syncope, Denies irregular heart rhythm and Denies dyspnea Resp Denies chest congestion, Denies cough and Denies dyspnea GI Denies change in stool character, Denies nausea and Denies vomiting Musc Denies deformity and Denies joint swelling Neuro Denies syncope and Denies headache(s) Physical exam (Primary Care) Vital Signs: Last Vital Signs Pulse 88 03/24/24 14:33 BP 140/72 H 03/24/24 14:33 Pulse Ox 97 03/24/24 14:33 Oxygen Delivery Method Room Air 03/24/24 14:33 BMI result Body Mass Index 30.5 Tobacco/Smoking Status: Tobacco use Status Tobacco use date assessed 02/20/24 03/24/24 14:36 Patient Tobacco Use Status Never used Tobacco 03/24/24 14:36 Tobacco use type Cigarette 03/24/24 14:36 e-Cigarette/Vaping Use Never Used 03/24/24 14:36 PHQ-9: PHQ-9 Score PHQ-9: Total score 0 03/24/24 14:37 Thrive Assessment: Date of Thrive Assessment Date Thrive assessed 02/20/24 03/24/24 14:36 Coding Level of Care Code Est Pt Level 3 (06066) Diagnoses Abdominal pain R10.9
[2024-03-24 14:33] VITALS: BP 140/72; PULSE 88; O2SAT 97; BMI 30.5
== END 2024-03-24 14:45 | disposition home or self-care (01) ==
PROVIDERS: PCP Internal Medicine; Visit Provider Internal Medicine
DX: R10.9 Unspecified abdominal pain (principal)

== ENCOUNTER → 2024-03-24 14:30 | Outpatient (BNVA) | payer OTHER, SELFPAY | PROVIDERS: PCP Internal Medicine; Visit Provider Internal Medicine | DX: R10.11 Right upper quadrant pain (principal); Z90.49 Acquired absence of other specified parts of digestive tract | CPT/HCPCS: 96127 ==

== ENCOUNTER 2024-08-25 14:07 | Outpatient (AMB) | payer OTHER, SELFPAY ==
--- NOTE | 2024-08-25 14:08 | MHC.OFFVIS ---
Vital Signs 08/25/24 14:09 Height 5 ft 2 in Weight 169 lb 12.095 oz BMI 31.0 BP 147/92 H Blood Pressure Location Lt brachial Position Sitting Pulse 94 Intake Visit Reasons: Abdominal pain Intake Note: Mehrdad presents in the office as a new patient for abdominal pains. CC: She states that she is having on and off pains in the RUQ. She states that she has been having heartburn and bad chest pains. She states she is having the same symptoms as she had when her gall bladder had to be removed. She states she had her gall bladder removed about 10 years ago. Local Area Network Administrator Required: No Allergies No Known Allergies Allergy (Verified 08/25/24 14:13) HPI Comments Details: 44 y.o F with PMH of CCY 2018, who is here for RUQ pain. Pain started almost 6 months ago and comes and goes. Triggered by eating certain foods. Reminiscent of biliary colic but pt is s/p CCY as above. Pain lasts almost an hour. Sometimes also assoc with palpitations but has had cardiac w/up which was negative per her report. Nausea + , no vomiting. Bloating +. No change in appetite. No unintentional weight loss. No fevers or chills. No recent travel. Takes CAM supplements: Ashwagandha Parsley Hibiscus tea Bitter melon [place] 07/2024 (Dr Luna) - one polyp - recall in 10 years. [facility] Medical History (Updated 08/25/24 @ 16:30 by Maribeth Kim MD) Intermittent palpitations Hypertension T2DM (type 2 diabetes mellitus) Surgical History (Updated 08/25/24 @ 16:26 by Maribeth Kim MD) Hx of cholecystectomy Hx of colonoscopy History of tubal ligation Family History Father No problems noted. Mother No problems noted. Social History Housing: House Alcohol intake: current Alcohol intake frequency: does not drink Patient Tobacco Use Status: Never used Tobacco Tobacco use type: Cigarette e-Cigarette/Vaping Use: Never Used Second Hand Smoke Exposure: No service: No Current occupational status: employed Current occupational exposures/hazards: No Cognitive needs: No Hearing needs: No Vision needs: No Review of Systems Const All systems reviewed & are unremarkable except as noted in HPI and below Physical Exam Vital Signs: Last Vital Signs Pulse 94 08/25/24 14:09 BP 147/92 H 08/25/24 14:09 BMI result Body Mass Index 31.0 No apparent distress Nonicteric Abdomen soft, nondistended Alert and oriented x3, normal gait Assessment & Plan Assessment & Plan (1) Colicky RUQ abdominal pain: Code(s): R10.11 - Right upper quadrant pain Category: Medical (2) Hx of cholecystectomy: Code(s): Z90.49 - Acquired absence of other specified parts of digestive tract Category: Surgical (3) Abnormal CT of thoracic spine: Code(s): R93.7 - Abnormal findings on diagnostic imaging of other parts of musculoskeletal system Category: Medical Plan Ddx include CBD stones, SOD, PUD, celiac. Pt also noted to have finding of sclerotic lesions in T10 and L4 ? referred pain. Plan: - Labs as below - US Abd - EGD to be booked - CT abd/pel with contrast ordered for f./up of bone lesions noted 02/2024 Follow up 8 weeks Orders: Orders Comprehensive Met. Panel Today R10.11 - Right upper quadrant pain TSH reflex Free T4 Today R10.11 - Right upper quadrant pain Immunoglobulin A Today R10.11 - Right upper quadrant pain US abdomen complete Today R10.11 - Right upper quadrant pain Complete Blood Count no Diff Today R10.11 - Right upper quadrant pain Transglutaminase IgA Today R10.11 - Right upper quadrant pain CT abdomen pelvis w IV con Today R93.7 - Abnormal findings on diagnostic imaging of other parts of musculoskeletal system Coding Level of Care Code New Pt Level 4 (12715) Diagnoses Colicky RUQ abdominal pain R10.11 Hx of cholecystectomy Z90.[address] of thoracic spine R93.7
[2024-08-25 14:09] VITALS: BP 147/92; PULSE 94; BMI 31.0
--- OUTSIDE RECORDS SUMMARY | 2024-08-25 16:55 | XMS_ITS | Encounter Summary ---
Author Organization [facility] Address [address] [place] [address] Care Team Providers Care Clinical Rn Name Role Phone Modesto Pennington MD Primary Care Provider [phone] Encounter Details Date Type Department Care Team (Latest Contact Info) Description 07/04/2024 Lab Requisition [facility] - Main Lab [address] [facility] [place] [phone] Sudhakar Lawson MD [address] [address] Encounter for gynecological examination (general) (routine) without abnormal findings Social History Tobacco Use Types Packs/Day Years Used Date Smoking Tobacco: Never Assessed Comments Unknown Sex and Gender Information Value Date Recorded Sex Assigned at Female 08/20/2024 12:58 PM EST Legal Sex Female 10:29 AM EST Gender Identity Female 08/20/2024 12:58 PM EST Sexual Orientation Straight 08/20/2024 12 :58 PM EST documented as of this encounter Plan of Treatment Not on file documented as of this encounter Procedures Procedure Name Priority Date/Time Associated Diagnosis Comments PAP SMEAR Routine 07/03/2024 12:00 AM EST Encounter for gynecological examination (general) (routine) without abnormal findings documented in this encounter Results * Pap smear (07/03/2024 12:00 AM EST) Interpretation Negative for intraepithelial lesion or malignancy 07/09/2024 4:58 PM EST [facility] General Categorization Negative 07/09/2024 4:58 PM [facility] LMP 06/15/2024 07/09/2024 4:58 PM [facility] Specimen Adequacy Satisfactory for evaluation, endocervical/dent sformation zone component absent 07/09/2024 4:58 PM [facility] Pap Methodology Liquid Based Pap Test 07/09/2024 4:58 PM [facility] Disclaimer The Pap test is a screening test which carries an inherent false negative rate. These test results should be correlated with the patient's clinical findings and history. This Pap test was processed using an automated screening system. Technical cytopathology services provided by [facility], at [address] [place] [id number] (CLIA # [id number]/Maeve Hobson MD, Fare Collector.) 07/09/2024 4:58 PM [facility] Console Pap Interpretation Reported 07/09/2024 4:58 PM [facility] Brushing/Spatula Cervix uteri structure / Unknown 07/03/2024 07/04/2024 6:55 AM EST us Sudhakar Lawson MD LAB CYTOLOGY ORDERABLES Final Result Performing Organization Address City/State/[facility] Co de Phone Number [facility] [address] [place] [address], documented in this encounter Visit Diagnoses Diagnosis Encounter for gynecological examination (general) (routine) without abnormal findings documented in this encounter Care Teams Clinical Rn Relationship Specialty Start Date End Date Modesto Pennington MD [address] [place] [id number] PCP - General Internal Medicine 12/23/18 documented as of this encounter
--- OUTSIDE RECORDS SUMMARY | 2024-08-25 16:55 | XMS_ITS | Clinical Summary ---
Author Organization [address] Address [address] [place] [address] Phone Care Team Providers Care Puttying And Calking Supervisor Name Role Phone Modesto Pennington MD Primary Care Provider [phone] Allergies No known active allergies Medications Jardiance 10 mg tablet Take 1 tablet (10 mg total) by mouth 1 (one) time each day. 04/18/2024 Active hydroCHLOROthia zide (MICROZIDE) 12.5 mg capsule Take 1 capsule (12.5 mg total) by mouth 1 (one) time each day. 06/16/2024 Active lisinopriL (PRINIVIL,ZESTR IL) 10 mg tablet Take 1 tablet (10 mg total) by mouth 1 (one) time each day. 06/15/2024 Active LORazepam (ATIVAN) 1 mg tablet Take 1 tablet (1 mg total) by mouth 2 (two) times a day if needed. for anxiety 03/07/2024 Active metFORMIN (GLUCOPHAGE) 1,000 mg tablet Take 1 tablet (1,000 mg total) by mouth 2 (two) times a day. 04/18/2024 Active Encounters Date Type Department Care Team Description 08/25/2024 Telephone Gastroenterology - [address] [phone] Rebecca Jesus [place] Results 08/20/2024 2:17 PM EST Anesthesia Event [facility] [address] [place] [phone] Fortino Strange MD 08/20/2024 1:02 PM EST - 08/20/2024 11:59 PM EST Hospital Encounter [facility] [address] [place] [address] Aleksandr Luna MD McAdams, Megan, CRNA Dasilva, John E, MD Family history of colonic polyps Discharge Disposition: Home or Self Care 07/11/2024 Telephone Gastroenterology - 299 [facility] [address] [phone] Edin RebeccaDAPHNE amaya 07/07/2024 Telephone Gastroenterology - [address] [phone] Aleksandr Luna MD 07/04/2024 Lab Requisition [facility] - Main Lab [address] [facility] [place] [address] Sudhakar Lawson MD Encounter for gynecological examination (general) (routine) without abnormal findings from Last 3 Months Surgical History Surgery Date Site/Laterality Comments HAND SURGERY Right CHOLECYSTECTOMY TUBAL LIGATION Medical History Medical History Date Comments Hypertension Diabetes mellitus ([facility]/HCC) Social History Tobacco Use Types Packs/Day Years Used Date Smoking Tobacco: Never Smokeless Tobacco: Never Tobacco Cessation:Counseling Given: Not Answered Alcohol Use Standard Drinks/Week Comments Never 0 (1 standard drink = 0.6 oz pur e alcohol) Interpersonal Safety Answer Date Record ed Physical Abuse 08/20/2024 Verbal Abuse 08/20/2024 Comments No Sex and Gender Information Value Date Recorded Sex Assigned at Female 08/20/2024 12:58 PM EST Legal Sex Female 10:29 AM EST Gender Identity Female 08/20/2024 12:58 PM EST Sexual Orientation Straight 08/20/2024 12 :58 PM EST Obstetrics History Last Filed Vital Signs Vital Sign Reading Time Taken Comments Blood Pressure 138/97 08/20/2024 3:00 PM EST Pulse 83 08/20/2024 3:00 PM EST Temperature 35.7 ??C (96.3 ??F) 08/20/2024 1:41 PM ES T Respiratory Rate 18 08/20/2024 3:00 PM EST Oxygen Saturation 97% 08/20/2024 3:00 PM EST Inhaled Oxygen Concentration - - Weight 74.8 kg (165 lb) 08/20/2024 1:41 PM EST Height 157.5 cm (5' 2 ) 08/20/2024 1:41 PM EST Body Mass Index 30.18 08/20/2024 1:41 PM EST Plan of Treatment Health Maintenance Due Date Last Done Comments Breast Cancer Screening 1978 Diabetes: Annual GFR (Glomer ular Filtration Rate) 1978 Diabetes: Annual Foot Exam 1988 Diabetes: Annual Retina Eye Exam 1988 DTaP,Tdap,and Td Vaccines (1 - Tdap) 1997 Hepatitis B Vaccines (1 of 3 - 19+ 3-dose series) 1997 COVID-19 Vaccine (2023-2 5 season) 2024 Influenza Vaccine (#1) 2024 Cholesterol Screening (Lipid Panel) 07/04/2024 Depression Screening 07/04/2024 HIV Screening 07/04/2024 Hepatitis C Screening 07/04/2024 Social Influencers of Health Screening 07/04/2024 Diabetes: Annual Urine Albumin-Creatinine Ratio (uACR) 08/20/2024 Diabetes: Blood Sugar Contro l Test (HGBA1C) 08/20/2024 Hypertension/CHF/CAD Annual BMP Blood Test 08/20/2024 Cervical Cancer Screening: P ap Smear 07/03/2027 07/03/2024 Colorectal Cancer Screening: Colonoscopy 08/20/2034 08/20/2024 HIB Vaccines Aged Out No longer eligi ble based on patient's age to complete this topic HPV Vaccines Aged Out No longer eligi ble based on patient's age to complete this topic Hepatitis A Vaccines Aged Out No long er eligible based on patient's age to complete this topic IPV Vaccines Aged Out No longer eligi ble based on patient's age to complete this topic MMR Vaccines Aged Out No longer eligi ble based on patient's age to complete this topic Meningococcal ACWY Vaccine Aged Out N o longer eligible based on patient's age to complete this topic Meningococcal B Vacine Aged Out No lo nger eligible based on patient's age to complete this topic Pneumococcal Vaccine: Pediat rics (0 to 5 Years) and At-Risk Patients (6 to 64 Years) Aged Out No longer eligi ble based on patient's age to complete this topic RSV Immunization Patients Un miquel 20 months Aged Out No longer eligible b ased on patient's age to complete this topic Varicella Vaccines Aged Out No longer eligible based on patient's age to complete this topic Procedures Procedure Name Priority Date/Time Associated Diagnosis Comments COLONOSCOPY Routine 08/20/2024 2:39 PM EST Family history of colonic polyps TISSUE EXAM Routine 08/20/2024 2:32 PM EST Family history of colonic polyps PAP SMEAR Routine 07/03/2024 12:00 AM EST Encounter for gynecological examination (general) (routine) without abnormal findings from Last 3 Months Results * COLONOSCOPY Anesthesia - MAC; [facility] ENDOSCOPY (08/20/2024 2:39 PM EST) Anatomical Region Laterality Modality Endoscopy 08/20/2024 2:07 PM EST Impressions 08/20/2024 2:44 PM EST - The entire examined colon is normal on direct and ? retroflexion views. ? - Diverticulosis in the sigmoid colon. ? - One 4 mm polyp in the cecum. Biopsied. ? - The examination was otherwise normal on direct and ? retroflexion views. Recommendation: ?- Repeat colonoscopy in 10 years for screening ? purposes. Narrative 08/20/2024 2:44 PM EST [facility] GI Patient Name: Gen Purcell Procedure Date: 08/20/2024 2:07 PM Date of : 1980 Age: 44 Room: ROOM 15 Gender: Female Note Status: Finalized Attending MD: Aleksandr Luna MD, Procedure Date No Time: 08/20/2024 Procedure: ? Colonoscopy Indications: ? Screening for colorectal malignant neoplasm Providers: ? Aleksandr Luna MD Referring MD: ?Aleksandr Luna MD Medicines: ? Propofol per Anesthesia Complications: ? No immediate complications. Estimated Blood Loss: ? Estimated blood loss: none. Procedure: ? Pre-Anesthesia Assessment: ? - ASA Grade Assessment: II - A patient with mild ? systemic disease. ? After I obtained informed consent, the scope was ? passed under direct vision. Throughout the procedure, ? the patient's blood pressure, pulse, and oxygen ? saturations were monitored continuously.The Olympus ? Pediatric Colonoscope was introduced through the anus ? and advanced to the cecum, identified by appendiceal ? orifice and ileocecal valve. The colonoscopy was ? performed without difficulty. The patient tolerated ? the procedure well. The quality of the bowel ? preparation was adequate. Findings: ?The entire examined colon appeared normal on direct ? and retroflexion views. ? A few small-mouthed diverticula were found in the ? sigmoid colon. ? A 4 mm polyp was found in the cecum. The polyp was ? sessile. This was biopsied with a cold jumbo forceps ? for histology. ? The exam was otherwise without abnormality on direct ? and retroflexion views. Procedure Code(s): ? --- Professional --- ? 45430, Colonoscopy, flexible; with biopsy, single or ? multiple Diagnosis Code(s): ? --- Professional --- ? Z12.11, Encounter for screening for malignant neoplasm ? of colon ? D12.0, Benign neoplasm of cecum ? K57.30, Diverticulosis of large intestine without ? perforation or abscess without bleeding CPT copyright 2020 [employer]. All rights reserved. The codes documented in this report are preliminary and upon crewman main battle tank review may be revised to meet current compliance requirements. Aleksandr Luna MD 08/20/2024 2:44:15 PM This report has been signed electronically.Aleksandr Luna MD Number of Addenda: 0 Note Initiated On: 08/20/2024 2:07 PM Scope In: Scope Out: ? Endoscopy Department at [facility] - [address] [place] [address], ? [place] [address] Procedure Note Aleksandr Luna MD - 08/20/2024 [facility] GI Patient Name: Gen Purcell Procedure Date: 08/20/2024 2:07 PM Date of : 1980 Age: 44 Room: ROOM 15 Gender: Female Note Status: Finalized Attending MD: Aleksandr Luna MD, Procedure Date No Time: 08/20/2024 Procedure: Colonoscopy Indications: Screening for colorectal malignant neoplasm Providers: Aleksandr Luna MD Referring MD: Aleksandr Luna MD Medicines: Propofol per Anesthesia Complications: No immediate complications. Estimated Blood Loss: Estimated blood loss: none. Procedure: Pre-Anesthesia Assessment: - ASA Grade Assessment: II - A patient with mild systemic disease. After I obtained informed consent, the scope was passed under direct vision. Throughout theprocedure, the patient's blood pressure, pulse, and oxygen saturations were monitored continuously.The Olympus Pediatric Colonoscope was introduced through theanus and advanced to the cecum, identified byappendiceal orifice and ileocecal valve. The colonoscopy was performed without difficulty. The patient tolerated the procedure well. The quality of the bowel preparation was adequate. Findings: The entire examined colon appeared normal on direct and retroflexion views. A few small-mouthed diverticula were found in the sigmoid colon. A 4 mm polyp was found in the cecum. The polyp was sessile. This was biopsied with a cold jumboforceps for histology. The exam was otherwise without abnormality ondirect and retroflexion views. Procedure Code(s): --- Professional --- 20087, Colonoscopy, flexible; with biopsy, singleor multiple Diagnosis Code(s): --- Professional --- Z12.11, Encounter for screening for malignantneoplasm of colon D12.0, Benign neoplasm of cecum K57.30, Diverticulosis of large intestine without perforation or abscess without bleeding CPT copyright 2020 [employer]. All rights reserved. The codes documented in this report are preliminary and upon crewman main battle tank reviewmay be revised to meet current compliance requirements. Aleksandr Luna MD 08/20/2024 2:44:15 PM This report has been signed electronically.Aleksandr Luna MD Number of Addenda: 0 Note Initiated On: 08/20/2024 2:07 PM Scope In: Scope Out: Endoscopy Department at [facility] - [address] [place] [phone] IMPRESSION: - The entire examined colon is normal on direct and retroflexion views. - Diverticulosis in the sigmoid colon. - One 4 mm polyp in the cecum. Biopsied. - The examination was otherwise normal on directand retroflexion views. Recommendation: - Repeat colonoscopy in 10 years for screening purposes. Aleksandr Luna MD GI~PROCEDURE ORDERABLES Fin al Result * Tissue exam (08/20/2024 2:32 PM EST) Final Diagnosis Polyp, cecum, polypectomy: - Colonic mucosa with a prominent reactive lymphoid aggregate; otherwise without diagnostic histopathologic change. (See note.) Note: Multiple additional levels are examined. 08/22/2024 9:14 AM [facility] Gross Description A. Large Intestine, Cecum, polyp: Labeled colon cecum polyp . Received in formalin is a 0.4 cm irregular valdez mucosal tissue fragment which is wrapped in paper and submitted in toto in one cassette, one piece, multiple levels on one slide. LAUREN 08/22/2024 9:14 AM [facility] Disclaimer Unless otherwise specified, all tissue is 10% NB formalin fixed and paraffin embedded. 08/22/2024 9:14 AM [facility] Tissue Cecum structure / Unknown 08/20/2024 2:32 PM EST 08/20/2024 4:00 PM EST Aleksandr Luna MD LAB PATHOLOGY ORDERABLES Fi nal Result [facility] [address] [place] [address], * Pap smear (07/03/2024 12:00 AM EST) Interpretation Negative for intraepithelial lesion or malignancy 07/09/2024 4:[address] [facility] General Categorization Negative 07/09/2024 4:58 PM [facility] LMP 06/15/2024 07/09/2024 4:58 PM [facility] Specimen Adequacy Satisfactory for evaluation, endocervical/dent sformation zone component absent 07/09/2024 4:[address] [facility] Pap Methodology Liquid Based Pap Test 07/09/2024 4:58 PM [facility] Disclaimer The Pap test is a screening test which carries an inherent false negative rate. These test results should be correlated with the patient's clinical findings and history. This Pap test was processed using an automated screening system. Technical cytopathology services provided by [facility], at [address] [place] [id number] (CLIA # [id number]/Maeve Hobson MD, Credit Operations Specialist.) 07/09/2024 4:58 PM [facility] Console Pap Interpretation Reported 07/09/2024 4:58 PM [facility] Brushing/Spatula Cervix uteri structure / Unknown 07/03/2024 07/04/2024 6:55 AM EST us Sudhakar Lawson MD LAB CYTOLOGY ORDERABLES Final Result [facility] [place] ([facility] [address] [place] [address], from Last 3 Months Insurance [employer] Care Teams Puttying And Calking Supervisor Relationship Specialty Start Date End Date Modesto Pennington MD [address] [place] [address] PCP - General Internal Medicine 12/23/18
--- OUTSIDE RECORDS SUMMARY | 2024-08-25 16:55 | XMS_ITS | Encounter Summary ---
Author Organization [facility] Address [address] [place] [address] Care Team Providers Care Hand Woven Carpet And Rug Mender Name Role Phone Modesto Pennington MD Primary Care Provider [phone] Reason for Referral * Hospital - Outpatient (Routine) - Closed Specialty Diagnoses / Procedures Referred By Carmen montano Referred To Contact Gastroenterology Diagnoses Family history of colonic polyps Procedures COLONOSCOPY Anesthesia - MAC; [facility] Aleksandr Luna MD [address] [address] Phone: tel: fax: [facility] Endoscopy [address] [place] [address] Phone: tel: Referral ID Status Reason Start Date Expiration Date Visits Re quested Visits Authorized [id number] Closed 07/11/2024 07/11/2025 1 1 Reason for Visit * Hospital - Outpatient (Routine) - Closed Specialty Diagnoses / Procedures Referred By Carmen montano Referred To Contact Gastroenterology Diagnoses Family history of colonic polyps Procedures COLONOSCOPY Anesthesia - MAC; [facility] Aleksandr Luna MD [address] [address] Phone: tel: fax: [facility] [address] [place] [address] Phone: tel: Referral ID Status Reason Start Date Expiration Date Visits Re quested Visits Authorized [id number] Closed 07/11/2024 07/11/2025 1 1 Encounter Details Date Type Department Care Team (Late st Contact Info) Description 08/20/2024 1:02 PM EST - 08/20/2024 11:59 PM EST Hospital Encounter [facility] [address] [place] [address] Aleksandr Luna MD [address] [facility] [address] [place] [address] Mary Swenson, PASHA [address] [place] [address] Fortino Strange MD [address] [place] [address] Family history of colonic polyps Discharge Disposition: Home or Self Care Social History Tobacco Use Types Packs/Day Years [...] PM EST documented as of this encounter Last Filed Vital Signs Vital Sign Reading [...] Mass Index 30.18 08/20/2024 1:41 PM EST documented in this encounter Discharge Instructions * Attachments The following attachments cannot be sent through Care Everywhere. * Diverticulosis (Nigerian) * Colonoscopy: Post-op (Nigerian) * Colon Polyps (Nigerian) documented in this encounter Medications at Time of Discharge hydroCHLOROthiazi de (MICROZIDE) 12.5 mg capsule Take 1 capsule (12.5 mg total) by mouth 1 (one) time each day. 06/16/2024 Jardiance 10 mg tablet Take 1 tablet (10 mg total) by mouth 1 (one) time each day. 04/18/2024 lisinopriL (PRINIVIL,ZESTRIL ) 10 mg tablet Take 1 tablet (10 mg total) by mouth 1 (one) time each day. 06/15/2024 LORazepam (ATIVAN) 1 mg tablet Take 1 tablet (1 mg total) by mouth 2 (two) times a day if needed. for anxiety 03/07/2024 metFORMIN (GLUCOPHAGE) 1,000 mg tablet Take 1 tablet (1,000 mg total) by mouth 2 (two) times a day. 04/18/2024 documented as of this encounter Discharge Disposition Disposition Code Departure Means Destination Home or Self Care documented in this encounter Progress Notes * Bonnie Nieves RN - 08/20/2024 2:00 PM EST Problem: Cognitive:Periop Procedure - Minor Goal: Knowledge of disease or condition will improve Outcome: Adequate for Discharge Problem: Sensory:Periop Procedure - Minor Goal: Demonstrates/reports adequate pain control Outcome: Adequate for Discharge * Anna Joshua RN - 08/20/2024 1:34 PM EST Problem: Cognitive:Periop Procedure - Minor Goal: Knowledge of disease or condition will improve Outcome: Progressing Problem: Sensory:Periop Procedure - Minor Goal: Demonstrates/reports adequate pain control Outcome: Progressing PT VERBALIZED UNDERSTAND OF DC INSTRUCTIONS, FALL RISK REVIEWED, CALL [facility]T AT BEDSIDE. documented in this encounter H&P Notes * Aleksandr Luna MD - 08/20/2024 2:00 PM EST Pre-Op Diagnosis: Colorectal screening Proposed Procedure: colon Performing Surgeon/MD/Endoscopist: Aleksandr Luna MD Medical/History: Past Medical History: Diagnosis Date Diabetes mellitus (CMS/HCC) Hypertension Past Surgical History: Procedure Laterality Date CHOLECYSTECTOMY HAND SURGERY Right TUBAL LIGATION Medications/Allergies: Prior to Admission medications Medication Sig Start Date End Date Taking? Authorizing Provider hydroCHLOROthiazide (MICROZIDE) 12.5 mg capsule Take 1 capsule (12.5 mg total) by mouth 1 (one) time each day. 06/16/24 Yes Historical Provider, lisinopriL (PRINIVIL,ZESTRIL) 10 mg tablet Take 1 tablet (10 mg total) by mouth 1 (one) time each day. 06/15/24 Yes Historical Provider, metFORMIN (GLUCOPHAGE) 1,000 mg tablet Take 1 tablet (1,000 mg total) by mouth 2 (two) times a day.04/18/24 Yes Historical Provider, Jardiance 10 mg tablet Take 1 tablet (10 mg total) by mouth 1 (one) time each day. Patient not taking: Reported on 08/13/2024 04/18/24 Historical Provider, LORazepam (ATIVAN) 1 mg tablet Take 1 tablet (1 mg total) by mouth 2 (two) times a day if needed. for anxiety 03/07/24 Historical Provider, Patient Age:44 y.o. Vitals: Vitals: 08/20/24 1341 BP: (!) 143/101 Pulse: 90 Resp: 18 Temp: 35.7 ??C (96.3 ??F) SpO2: 100% Physical Exam: Mental Status: Clear HEENT: WNL Heart: WNL Lungs: WNL Abdomen: WNL Extremities: WNL Neuro: WNL Labs: Imaging: Diagnosis/Plan: Colonoscopy documented in this encounter Procedure Notes * Bonnie Nieves RN - 08/20/2024 3:10 PM EST Patient tolerated fluids and snacks well. Spoke with Dr. Luna about findings, Pt. Meets criteria for discharge. documented in this encounter Plan of Treatment Pending Results Name Type Priority Associated Diagnoses Date /Time POC , urine NO CHARGE screening manually resulted Point of Care Testing Routine 08/20/2024 1:36 PM EST Scheduled Orders Name Type Priority Associated Diagnoses Orde r Schedule POC , urine NO CHARGE screening manually resulted Point of Care Testing Routine Once for 1 Occurrences starting 08/20/2024 until 08/20/2024 documented as of this encounter Procedures Procedure Name Priority Date/Time Associated Diagnosis Comments COLONOSCOPY Routine 08/20/2024 2:39 PM EST Family history of colonic polyps TISSUE EXAM Routine 08/20/2024 2:32 PM EST Family history of colonic polyps documented in this encounter Results * COLONOSCOPY Anesthesia - MAC; [facility] (08/20/2024 2:39 PM EST) Anatomical Region [...] ? purposes. Narrative 08/20/2024 2:44 PM EST [facility] GI Patient Name: Gen Purcell Procedure Date: [...] Procedure Code(s): ? --- Professional --- ? 76918, Colonoscopy, flexible; with biopsy, single or ? multiple Diagnosis Code(s): ? --- Professional --- ? Z12.11, Encounter for screening for malignant neoplasm ? of colon ? D12.0, Benign neoplasm of cecum ? K57.30, Diverticulosis of large intestine without ? perforation or abscess without bleeding CPT copyright 2020 [employer]. All rights reserved. The codes documented in this report are preliminary and upon information coder review may be revised to meet current compliance requirements. Aleksandr Luna MD 08/20/2024 2:44:15 PM This report has been signed electronically.Aleksandr Luna MD Number of Addenda: 0 Note Initiated On: 08/20/2024 2:07 PM Scope In: Scope Out: ? Endoscopy Department at [facility] - [address] [place] [address], ? [place] [address] Procedure Note Aleksandr Luna MD - 08/20/2024 [facility] GI Patient Name: Gen Purcell Procedure Date: [...] retroflexion views. Procedure Code(s): --- Professional --- 41948, Colonoscopy, flexible; with biopsy, singleor multiple Diagnosis Code(s): --- Professional --- Z12.11, Encounter for screening for malignantneoplasm of colon D12.0, Benign neoplasm of cecum K57.30, Diverticulosis of large intestine without perforation or abscess without bleeding CPT copyright 2020 [employer]. All rights reserved. The codes documented in this report are preliminary and upon information coder reviewmay be revised to meet current compliance requirements. Aleksandr Luna MD 08/20/2024 2:44:15 PM This report has been signed electronically.Aleksandr Luna MD Number of Addenda: 0 Note Initiated On: 08/20/2024 2:07 PM Scope In: Scope Out: Endoscopy Department at [facility] - [address] [place] [id number] IMPRESSION: - The entire examined colon is [...] additional levels are examined. 08/22/2024 9:14 AM EST [facility] Gross Description A. Large Intestine, Cecum, polyp: Labeled colon cecum polyp . Received in formalin is a 0.4 cm irregular valdez mucosal tissue fragment which is wrapped in paper and submitted in toto in one cassette, one piece, multiple levels on one slide. LAUREN 08/22/2024 9:14 AM EST [facility] Disclaimer Unless otherwise specified, all tissue is 10% NB formalin fixed and paraffin embedded. 08/22/2024 9:14 AM EST [facility] Tissue Cecum structure / Unknown 08/20/2024 2:32 PM EST 08/20/2024 4:00 PM EST us Aleksandr Luna MD LAB PATHOLOGY ORDERABLES Fi nal Result [facility] [address] [place] [address], documented in this encounter Visit Diagnoses Diagnosis Family history of colonic polyps documented in this encounter Historical Medications * This list may reflect changes made after this encounter. metFORMIN (GLUCOPHAGE) 1,000 mg tablet Take 1 tablet (1,000 mg total) by mouth 2 (two) times a day. 04/18/2024 LORazepam (ATIVAN) 1 mg tablet Take 1 tablet (1 mg total) by mouth 2 (two) times a day if needed. for anxiety 03/07/2024 lisinopriL (PRINIVIL,ZESTRIL ) 10 mg tablet Take 1 tablet (10 mg total) by mouth 1 (one) time each day. 06/15/2024 hydroCHLOROthiazi de (MICROZIDE) 12.5 mg capsule Take 1 capsule (12.5 mg total) by mouth 1 (one) time each day. 06/16/2024 Jardiance 10 mg tablet Take 1 tablet (10 mg total) by mouth 1 (one) time each day. 04/18/2024 added in this encounter Orders Discharge Count Last Ordered Date First Orde red Date DISCHARGE PATIENT 1 08/20/2024 documented in this encounter Care Teams Hand Woven Carpet And Rug Mender Relationship Specialty Start Date End Date Modesto Pennington MD [address] [place] [address] PCP - General Internal Medicine 12/23/18 documented as of this encounter
--- OUTSIDE RECORDS SUMMARY | 2024-08-25 16:55 | XMS_ITS | Encounter Summary ---
[facility] Address [address] [place] [address] Care Team Providers Care Rn Visiting Name Role Phone Modesto Pennington MD Primary Care Provider [phone] Encounter Details Date Type Department Care Team (Late st Contact Info) Description 08/20/2024 2:17 PM EST Anesthesia Event [facility] Endoscopy [address] [place] [id number] Fortino Strange MD [address] [place] [address] Anesthesia Record Procedure Summary Procedure Name Responsible Anesthesiologist Anesthesia Start Time Anesthesia Stop Time COLONOSCOPY Fortino Strange MD 08/20/24 1417 08/20/24 1443 Events Date Time Event Comment 08/20/2024 1348 1416 In Room 1417 An Start 1417 An Start Data The patient wa s reevaluated immediately before moderate or deep sedation use and before anesthesia induction. 1419 Anesthesia Ready 1439 Out of Room 1442 an stop data 1443 Handoff to RN I completed my handoff to the receiving nurse during which we: 1. Identified the patient 2. Identified the responsible provider 3. Reviewed the pertinent medical history 4. Discussed the surgical course 5. Reviewed intra-op anesthesia management and issues during anesthesia 6. Set expectations for post-procedure period 7. Allowed opportunity for questions and acknowledgement of understanding. 1443 An Stop Meds Name Total propofol (DIPRIVAN) injection 10 mg/mL 2 00 mg lidocaine PF (XYLOCAINE-MPF) local injec tion 2% 100 mg lactated Ringer's infusion 500 mL * Agents No agents on file. * Blood No blood administrations on file. Lines, Drains, and Airways Type Details Placement Removal Peripheral IV Placement Date: 08/20/24; Placement Time: 1341; Catheter Size: 20 G; Orientation: Posterior, Right; Location: Hand; Insertion Attempts: 1; Patient Tolerance: Tolerated well; Removal Date: 08/20/24; Removal Time: 14508/20/24 1342 by Anna Joshua RN 08/20/24 1455 by Bonnie Nieves RN documented in this encounter Social History Tobacco Use Types Packs/Day Years Used Date Smoking Tobacco: Never Smokeless Tobacco: Never Alcohol Use Standard Drinks/Week Comments Never 0 [...] PM EST documented as of this encounter Progress Notes * Mary Swenson CRNA - 08/20/2024 2:43 PM EST Patient: Gen Purcell Procedure Summary Date: 08/20/24 Room / Location: [facility]oscopy Anesthesia Start: 1417 Anesthesia Stop: 1443 Procedure: COLONOSCOPY Diagnosis: Family history of colonic polyps Scheduled Providers: Aleksandr Luna MD; Mary Swenson CRNA; Fortino Strange MD Responsible Provider: Fortino Strange MD Anesthesia Type: MAC ASA Status: 2 Anesthesia Plan: MAC Last Vitals: Vitals Value Taken Time Visit Vitals BP (!) 143/101 Pulse 90 Temp 35.7 ??C (96.3 ??F) (Tympanic) Resp 18 Ht 1.575 m (62 ) Wt 74.8 kg (165 lb) LMP 08/11/2024 SpO2 100% BMI 30.18 kg/m?? OB Status Having periods Smoking Status Never BSA 1.76 m?? Anesthesia Post Evaluation Patient location during evaluation: PACU Patient participation: complete - patient participated Level of consciousness: awake Pain score: 0 Pain management: adequate Airway patency: patent Anesthetic complications: no Cardiovascular status: acceptable Respiratory status: acceptable Hydration status: acceptable Nausea: No Vomiting: No There were no known notable events for this encounter. * Fortino Strange MD - 08/20/2024 1:44 PM EST Relevant Problems No relevant active problems Clinical information reviewed: Tobacco Allergies Meds Med Hx Surg Hx OB Status Fam Hx Soc Hx Anesthesia Plan ASA 2 Anesthesia Plan: MAC Induction method: N/A Anesthetic plan and risks discussed with patient. Anesthesia Evaluation Airway Mallampati: II Dental - normal exam Pulmonary - negative ROS and normal exam Cardiovascular - normal exam (+) hypertension Neuro/Psych - negative ROS GI/Hepatic/Renal - negative ROS Endo/Other (+) diabetes mellitus Abdominal PONV RISK SCORE: 2 Vitals: 08/13/24 0800 08/20/24 1341 BP: (!) 143/101 Pulse: 90 Resp: 18 Temp: 35.7 ??C (96.3 ??F) TempSrc: Tympanic SpO2: 100% Weight: 74.8 kg (165 lb) 74.8 kg (165 lb) Height: 1.575 m (62 ) 1.575 m (62 ) LMP: 08/11/2024 SpO2 Readings from Last 1 Encounters: 08/20/24 100% No results found for: WBC , RBC , HGB , HCT , PLT , MCV No Known Allergies STOP BANG: No data recorded NPO Status: Time of Last Liquid: 1245 Time of Last Solid: 1930 documented in this encounter Plan of Treatment Not on file documented as of this encounter Visit Diagnoses Not on filedocumented in this encounter Administered Medications Inactive Administered Medications - up to 3 most recent administrations Medication Order MAR Action Action Date Dose Rate Site lactated Ringer's infusion intravenous, Continuous PRN, Starting on Sun08/20/24 at 1420, Anesthesia Intraprocedure Rate/Dose Change 08/20/2024 2:41 PM EST 125 mL/hr New Bag 08/20/2024 2:20 PM EST 125 mL/hr lidocaine (PF) (XYLOCAINE-MPF) 2 % injection injection, As needed, Starting on Sun08/20/24 at 1429, Anesthesia Intraprocedure Given 08/20/2024 2:29 PM EST 100 mg propofoL (DIPRIVAN) injection intravenous, As needed, Starting on Sun08/20/24 at 1429, Anesthesia Intraprocedure Given 08/20/2024 2:36 PM EST 1 00 mg Given 08/20/2024 2:29 PM EST 100 mg documented in this encounter Care Teams Rn Visiting Relationship Specialty Start Date End Date Modesto Pennington MD [address] [place] [address] PCP - General Internal Medicine 12/23/18 documented as of this encounter
--- OUTSIDE RECORDS SUMMARY | 2024-08-25 16:55 | XMS_ITS | Encounter Summary ---
Author Organization [facility] Address [address] [place] [address] Care Team Providers Care Piper Installer Name Role Phone Modesto Pennington MD Primary Care Provider [phone] Reason for Visit * Reason Onset Date Comments Results 08/25/2024 Encounter Details Date Type Department Care Team (Late st Contact Info) Description 08/25/2024 Telephone Gastroenterology - [address] [place] [phone] Rebecca Jesus MA Results Social History Tobacco Use Types Packs/Day Years [...] as of this encounter Progress Notes * Rebecca Jesus MA - 08/25/2024 2:06 PM EST Bx results below given to pt. * Rebecca Jesus MA - 08/25/2024 1:22 PM EST Lmom to cb for bx results. Recall entered. * Rebecca Jesus MA - 08/25/2024 1:21 PM EST ----- Message from Skip Luna MD sent at 08/22/2024 3:45 PM EST ----- Please call pt, polyp hyperplastic, repeat colonoscopy in 10 years. TY documented in this encounter Plan of Treatment Not on file documented as of this encounter Visit Diagnoses Not on filedocumented in this encounter Care Teams Piper Installer Relationship Specialty Start Date End Date Modesto Pennington MD [address] [place] [address] PCP - General Internal Medicine 12/23/18 documented as of this encounter
--- OUTSIDE RECORDS SUMMARY | 2024-08-25 16:55 | XMS_ITS | Continuity of Care Document ---
Author Organization [facility] [address] [place] [address] Phone [phone] Care Team Providers Care Armature Winder Repair Helper Name Role Phone Modesto Pennington Care Team Information Health Plan Advisor [phone] Problems Active Problems Provider Date Type 2 diabetes mellitus Jimmy العراقي M.D. O nset: 09/28/2023 Essential hypertension Jimmy العراقي M.D. Ons et: 09/28/2023 Social History Type Date Description Comments Sex Unknown Lives With Spouse ETOH Use Occasionally consumes alcoho l Tobacco Use Start: Unknown Patient has never smoked Allergies and adverse reactions Description No Known Drug Allergies Medications Active Medications SIG Qnty Indications Ordering Provider Date [id number] Tablets 1 by mouth every day 90tabs Jimmy العراقي M.D. 09/28/2023 [id number] Tablets Take 1 Tablet By Mouth Twice Daily as Needed For Anxiety Modesto Pennington Metformin [id number] Tablets Take 1 Tablet By Mouth Twice Daily Modesto Pennington Bwjvmbvhxlbazauttuo58 .5mg Capsules Take 1 Capsule By Mouth Daily Modesto Pennington Hpumpruxnq02ql Tablets Take 1 Tablet By Mouth Daily Modesto Pennington Vital Signs Date Vital Result Comment 09/28/2023 10:37am BP Systolic 154 mmHg BP Diastolic 98 mmHg Heart Rate 100 /min Height 62 inches 5'2 Weight 176.50 lb BMI (Body Mass Index) 32.3 kg/m2 Results Test Acquired Date Facility Test Result H/L Range Note Laboratory test finding 09/28/2023 Inhouse Glucose Fingerstick 237 Hemoglobin A1c 7.5% Laboratory test finding 04/11/2023 [facility] TSH With Reflex To FT4 1.88 uIU/mL (0.4-4.2) Basic Metabolic Panel 04/11/2023 [facility] Glucose 176 mg/dL High (70-99) BUN 15 mg/dL (6-20) Creatinine 0.5 mg/dL (0.5-1.0) Sodium 134 mmol/L (133-145) Potassium 4.4 mmol/L (3.6-5.2) Chloride 99 mmol/L (98-107) Bicarbonate 25 mmol/L (22-29) Anion Gap 10 (4-17) Calcium 10.0 mg/dL (8.6-10.5 ) Estimated GFR Creatinine 116 ML/MIN/1.7 3M2 1 Urinary Microalbumin 04/11/2023 [facility] Micro-Albumin <12.0 mg/L (<20) 2 Malb/Creat Ratio Unable to calcul <SEE NOTE> MG/GM (0-20) 3 Urine Creat For Micro Albumin 29.0 mg/dL Laboratory test finding 04/11/2023 Inhouse Glucose Fingerstick 90 Hemoglobin A1c 7.8% 1 Creatinine based est imated glomerular filtration (eGFR) in adults is calculated using the [employer] recommended 2020 CKD-EPI equation. Estimates GFR from serum creatinine, age and sex. 2 The urine microalbum in test is designed to monitor renal function. When screening for Bence Healy proteinuria, urine electrophoresis is recommended. 3 Unable to calculate Procedures Date Code Description Status 12/31/2023 NSHOWOFF No Show Office Visit Complet ed Medical Devices Description No Information Available Encounters Type Date Location Provider Dx Diagnosis Office Visit 09/28/2023 10:30a Main Office Jimmy العراقي M.D. E11.9 Type 2 diabetes mellitus without complications I10 Essential (primary) hypertension Assessments Date Code Description Provider 09/28/2023 E11.9 Type 2 diabetes mellitus wit hout complications Jimmy العراقي M.D. 09/28/2023 I10 Essential (primary) hyperten dee Jimmy العراقي M.D. Plan of Treatment 09/28/2023 - Jimmy العراقي M.D.* E11.9 Type 2 diabetes mellitus without complications * I10 Essential (primary) hypertension * Functional Status Description No Information Available Mental Status Description No Information Available Referrals Description No Information Available
== END 2024-08-25 15:07 | disposition home or self-care (01) ==
PROVIDERS: PCP Internal Medicine; Visit Provider Internal Medicine
DX: R10.11 Right upper quadrant pain (principal); Z90.49 Acquired absence of other specified parts of digestive tract; R93.7 Abnormal findings on diagnostic imaging of other parts of musculoskeletal system
CPT/HCPCS: 99204

== ENCOUNTER 2024-09-25 08:00 | Outpatient (REF) | payer OTHER, SELFPAY ==
--- NOTE | ~2024-09-25 | US_ITS ---
EXAMINATION: US ABDOMEN HISTORY: R10.11 - Right upper quadrant pain TECHNIQUE: Real-time grayscale ultrasound imaging of the abdomen was performed and images were reviewed. COMPARISON: Comparison is made with the prior examination dated 12/25/2013. FINDINGS: Liver: The right lobe of the liver measures 13.2 cm in size. The left lobe of the liver measures 8.6 cm in size. The liver demonstrates heterogeneous increased echotexture, consistent with steatosis. No focal mass or intrahepatic biliary ductal dilatation is identified. There is normal hepatopedal flow in the portal vein. Gallbladder and biliary tree: The gallbladder is surgically absent. The common bile duct is normal in caliber measuring 5 mm. Kidneys: The right kidney measures 10.3 cm in length. The left kidney measures 11.5 cm in length. The kidneys are unremarkable, without evidence of masses, hydronephrosis, or calculi. Pancreas: The pancreatic head, neck, and body are unremarkable. The pancreatic tail is obscured by bowel gas. Spleen: The spleen is normal in size and contour, measuring 11.0 cm in length. Abdominal aorta and inferior vena cava: The visualized portions of the abdominal aorta and inferior vena cava are normal in caliber. There is no free fluid in the abdomen. US/US abdomen complete IMPRESSION: Hepatic steatosis. Otherwise unremarkable abdominal ultrasound. Electronically signed by: Chase Hernandes MD 09/25/2024 09:00 AM EDT
--- OUTSIDE RECORDS SUMMARY | 2024-09-25 08:04 | XMS_ITS | Encounter Summary ---
Author Organization [facility] Address [address] [place] [address] Care Team Providers Care Accounting Machine Mechanic Name Role Phone Modesto Pennington MD Primary Care Provider [phone] Encounter Details Date Type Department Care Team (Latest Contact Info) Description 07/04/2024 Lab Requisition [facility] - Main Lab [address] [facility] [place] [id number] Sudhakar Lawson MD [address] [address] Encounter for gynecological examination (general) [...] lesion or malignancy 07/09/2024 4:58 PM EST [facility] General Categorization Negative 07/09/2024 4:58 PM [facility] LMP 06/15/2024 07/09/2024 4:58 PM [facility] Specimen Adequacy Satisfactory for evaluation, endocervical/dent sformation zone component absent 07/09/2024 4:58 PM [facility] Pap Methodology Liquid Based Pap Test 07/09/2024 4:58 PM [facility] Disclaimer The Pap test is a screening test which carries an inherent false negative rate. These test results should be correlated with the patient's clinical findings and history. This Pap test was processed using an automated screening system. Technical cytopathology services provided by [facility], at [address] [place] [id number] (CLIA # [id number]/Maeve Hobson MD, Seed Expert.) 07/09/2024 4:58 PM [facility] Console Pap Interpretation Reported 07/09/2024 4:58 PM [facility] Brushing/Spatula Cervix uteri structure / Unknown 07/03/2024 07/04/2024 6:55 AM EST us Sudhakar Lawson MD LAB CYTOLOGY ORDERABLES Final Result Performing Organization Address City/State/[facility] Co de Phone Number [facility] [address] [place] [address], documented in this encounter Visit Diagnoses Diagnosis Encounter for gynecological examination (general) (routine) without abnormal findings documented in this encounter Care Teams Accounting Machine Mechanic Relationship Specialty Start Date End Date Modesto Pennington MD [address] [place] [address] PCP - General Internal Medicine 12/23/18 documented as of this encounter
--- OUTSIDE RECORDS SUMMARY | 2024-09-25 08:04 | XMS_ITS | Clinical Summary ---
Author Organization [address] Address [address] [place] [address] Phone Care Team Providers Care Regulatory Affairs Intern Name Role Phone Modesto Pennington MD Primary Care Provider [phone] Allergies No known active allergies Medications Jardiance [...] Team Description 08/25/2024 Telephone Gastroenterology - [address] [phone] Rebecca Jesus MA Results 08/20/2024 2:17 PM EST Anesthesia Event [facility] [address] [place] [phone] Fortino Strange MD 08/20/2024 1:02 PM EST - 08/20/2024 11:59 PM EST Hospital Encounter [facility] [address] [place] [address] Aleksandr Luna MD McAdams, Megan, CRNA Dasilva, John E, MD Family history of colonic polyps Discharge Disposition: Home or Self Care 07/11/2024 Telephone Gastroenterology - 299 [facility] [address] [phone] Edin RebeccaDAPHNE amaya 07/07/2024 Telephone Gastroenterology - [address] [phone] Aleksandr Luna MD 07/04/[address] [facility] - Main Lab [address] [facility] [place] [address] Sudhakar Lawson MD Encounter for gynecological examination (general) (routine) without abnormal findings from Last 3 Months Surgical History Surgery Date Site/Laterality Comments HAND SURGERY Right CHOLECYSTECTOMY TUBAL LIGATION Medical History Medical History Date Comments Hypertension Diabetes mellitus ([facility]/HCC) Social History Tobacco Use Types Packs/Day Years [...] Months Results * COLONOSCOPY Anesthesia - MAC; [facility] ENDOSCOPY (08/20/2024 2:39 PM EST) [...] ? purposes. Narrative 08/20/2024 2:44 PM EST [facility] GI Patient Name: Gen Purcell Procedure [...] Procedure Code(s): ? --- Professional --- ? 09422, Colonoscopy, flexible; with biopsy, single or ? multiple Diagnosis Code(s): ? --- Professional --- ? Z12.11, Encounter for screening for malignant neoplasm ? of colon ? D12.0, Benign neoplasm of cecum ? K57.30, Diverticulosis of large intestine without ? perforation or abscess without bleeding CPT copyright 2020 [employer]. All rights reserved. The codes documented in this report are preliminary and upon construction plumber review may be revised to meet current compliance requirements. Aleksandr Luna MD 08/20/2024 2:44:15 PM This report has been signed electronically.Aleksandr Luna MD Number of Addenda: 0 Note Initiated On: 08/20/2024 2:07 PM Scope In: Scope Out: ? Endoscopy Department at [facility] - [address] [place] [address], ? [place] [address] Procedure Note Aleksandr Luna MD - 08/20/2024 [facility] GI Patient Name: Gen Purcell Procedure [...] retroflexion views. Procedure Code(s): --- Professional --- 86016, Colonoscopy, flexible; with biopsy, singleor multiple Diagnosis Code(s): --- Professional --- Z12.11, Encounter for screening for malignantneoplasm of colon D12.0, Benign neoplasm of cecum K57.30, Diverticulosis of large intestine without perforation or abscess without bleeding CPT copyright 2020 [employer]. All rights reserved. The codes documented in this report are preliminary and upon construction plumber reviewmay be revised to meet current compliance requirements. Aleksandr Luna MD 08/20/2024 2:44:15 PM This report has been signed electronically.Aleksandr Luna MD Number of Addenda: 0 Note Initiated On: 08/20/2024 2:07 PM Scope In: Scope Out: Endoscopy Department at [facility] - [address] [place] [phone] IMPRESSION: - The entire examined colon is [...] additional levels are examined. 08/22/2024 9:14 AM [facility] Gross Description A. Large Intestine, Cecum, polyp: Labeled colon cecum polyp . Received in formalin is a 0.4 cm irregular valdez mucosal tissue fragment which is wrapped in paper and submitted in toto in one cassette, one piece, multiple levels on one slide. LAUREN 08/22/2024 9:14 AM [facility] Disclaimer Unless otherwise specified, all tissue is 10% NB formalin fixed and paraffin embedded. 08/22/2024 9:14 AM [facility] Tissue Cecum structure / Unknown 08/20/2024 2:32 PM EST 08/20/2024 4:00 PM EST Aleksandr Luna MD LAB PATHOLOGY ORDERABLES Fi nal Result [facility] [address] [place] [address], * Pap smear (07/03/2024 12:00 AM EST) Interpretation Negative for intraepithelial lesion or malignancy 07/09/2024 4:58 PM EST [facility] General Categorization Negative 07/09/2024 4:58 PM [facility] LMP 06/15/2024 07/09/2024 4:58 PM [facility] Specimen Adequacy Satisfactory for evaluation, endocervical/dent sformation zone component absent 07/09/2024 4:58 PM EST [facility] Pap Methodology Liquid Based Pap Test 07/09/2024 4:58 PM [facility] Disclaimer The Pap test is a screening test which carries an inherent false negative rate. These test results should be correlated with the patient's clinical findings and history. This Pap test was processed using an automated screening system. Technical cytopathology services provided by [facility], at [address] [place] [id number] (CLIA # [id number]/Maeve Hobson MD, Elevators Inspector.) 07/09/2024 4:58 PM [facility] Console Pap Interpretation Reported 07/09/2024 4:58 PM [facility] Brushing/Spatula Cervix uteri structure / Unknown 07/03/2024 07/04/2024 6:55 AM EST us Sudhakar Lawson MD LAB CYTOLOGY ORDERABLES Final Result [facility] [place] [facility] [address] [place] [address], from Last 3 Months Insurance [employer] Care Teams Regulatory Affairs Intern Relationship Specialty Start Date End Date Modesto Pennington MD [address] [place] [address] PCP - General Internal Medicine 12/23/18
--- OUTSIDE RECORDS SUMMARY | 2024-09-25 08:04 | XMS_ITS | Continuity of Care Document ---
Author Organization [facility] [address] [place] [address] Phone [phone] Care Team Providers Care Credit Products Officer Name Role Phone Modesto Pennington Care Team Information Kitchen Assistant [phone] Problems Active Problems Provider Date Type 2 [...] Medications SIG Qnty Indications Ordering Provider Date [id number] Tablets 1 by mouth every day 90tabs Jimmy العراقي M.D. 09/28/2023 [id number] Tablets Take 1 Tablet By Mouth Twice Daily as Needed For Anxiety Modesto Pennington Metformin [id number] Tablets Take 1 Tablet By Mouth Twice Daily Modesto Pennington Pruegbhcufyquasdnav20 .5mg Capsules Take 1 Capsule By Mouth Daily Modesto Pennington Ldbrbjjlvj22pc Tablets Take 1 Tablet By Mouth Daily Modesto Pennington Vital Signs Date Vital Result Comment 09/28/2023 10:37am BP Systolic 154 mmHg BP Diastolic 98 mmHg Heart Rate 100 /min Height 62 inches 5'2 Weight 176.50 lb BMI (Body Mass Index) 32.3 kg/m2 Results Test Acquired Date Facility Test Result H/L Range Note Glucose Fingerstick 09/28/2023 Inhouse Glucose Fingerstick 237 Hemoglobin A1c 09/28/2023 Inhouse Hemoglobin A1c 7.5% TSH With Reflex To FT4 04/11/2023 [facility] TSH With Reflex To FT4 1.88 uIU/mL (0.4-4.2) Basic Metabolic Panel 04/11/2023 [facility] Glucose 176 mg/dL High (70-99) BUN 15 mg/dL (6-20) Creatinine 0.5 mg/dL (0.5-1.0) Sodium 134 mmol/L (133-145) Potassium 4.4 mmol/L (3.6-5.2) Chloride 99 mmol/L (98-107) Bicarbonate 25 mmol/L (22-29) Anion Gap 10 (4-17) Calcium 10.0 mg/dL (8.6-10.5 ) Estimated GFR Creatinine 116 ML/MIN/1.7 3M2 1 Urinary Microalbumin 04/11/2023 [facility] Micro-Albumin <12.0 mg/L (<20) 2 Malb/Creat Ratio Unable to calcul <SEE NOTE> MG/GM (0-20) 3 Urine Creat For Micro Albumin 29.0 mg/dL Glucose Fingerstick 04/11/2023 Inhouse Glucose Fingerstick 90 Hemoglobin A1c 04/11/2023 Inhouse Hemoglobin A1c 7.8% 1 Creatinine based est [...] M.D. 09/28/2023 I10 Essential (primary) hyperten dee العراقي M.D. Plan of Treatment 09/28/2023 - Jimmy العراقي M.D.* E11.9 Type 2 diabetes mellitus without complications * I10 Essential (primary) hypertension * Functional Status Description No Information Available Mental Status Description No Information Available Referrals Description No Information Available
[2024-09-25 08:53] LABS: Hematocrit 36.6 % (37.0-47.0); Hemoglobin 12.7 g/dl (12.0-16.0); Mean Corpuscular HGB Conc 34.7 g/dl (31.0-35.0); Mean Corpuscular Volume 86.5 fL (80.0-98.0); Mean Platelet Volume 9.2 fL (9.4-12.3); Platelet Count 233 X10*3/uL (160-400); Red Blood Count 4.23 X10*6/uL (4.20-5.50); Red Cell Distribution Width 12.2 % (11.0-16.0); White Blood Count 6.1 X10*3/uL (4.8-10.8)
[2024-09-25 09:24] LABS: Alanine Aminotransferase 13 U/L (0-31); Albumin Level 3.9 g/dL (3.5-5.0); Alkaline Phosphatase 99 U/L (39-117); Anion Gap 12 (12-20); Aspartate Amino Transferase 15 U/L (5-31); Bilirubin Total 0.7 mg/dL (0.0-1.0); Blood Urea Nitrogen 13 mg/dL (9-16); Carbon Dioxide 23 mmol/L (22-29); Chloride 106 mmol/L (96-108); Estimated Glomerular Filt Rate > 60; Glucose Random 196 mg/dL (60-115); Potassium 3.9 mmol/L (3.3-5.1); Sodium 137 mmol/L (135-145); Total Protein 6.9 g/dL (6.5-8.0)
[2024-09-25 09:40] LABS: TSH reflex Free T4 2.01 uIU/mL (0.32-4.0)
[2024-09-26 20:08] LABS: Immunoglobulin A 370 mg/dL (47-310)
[2024-09-26 21:42] LABS: Transglutaminase IgA <1.0 U/mL
== END 2024-09-25 08:01 | disposition home or self-care (01) ==
LOC: HO.US 08:00
PROVIDERS: PCP Internal Medicine; Visit Provider Internal Medicine
DX: K76.0 Fatty (change of) liver, not elsewhere classified (principal); R10.11 Right upper quadrant pain
CPT/HCPCS: 36415; 76700; 80053; 82784; 84443; 85027; 86364

== ENCOUNTER → 2024-09-25 08:02 | Outpatient (BNV) | payer OTHER, SELFPAY | PROVIDERS: PCP Internal Medicine; Visit Provider Radiology Diagnostic Radiology | DX: K76.0 Fatty (change of) liver, not elsewhere classified (principal) | CPT/HCPCS: 76700 ==

== ENCOUNTER 2024-10-16 15:05 | Outpatient (AMB) | payer OTHER, SELFPAY ==
[2024-10-16 15:13] VITALS: BP 130/90; PULSE 104; O2SAT 98; BMI 31.3
--- NOTE | 2024-10-16 15:13 | A.OFFPC_ITS ---
Vital Signs 10/16/24 15:13 Height 5 ft 2 in Weight 171 lb 6 oz BMI 31.3 BP 130/90 H Blood Pressure Location Lt brachial Position Sitting Pulse 104 H Pulse Source Pulse Oximeter Pulse Oximetry (%) 98 Oxygen Delivery Method Room Air Intake Visit Reasons: annual/ kahlil Dr Pennington Sld Inclusion Teacher Required: No Accompanied by: Self / Same As Patient Allergies No Known Allergies Allergy (Verified 10/16/24 15:24) Medication List - Last Reviewed 10/16/24 by SAIDA Melara empagliflozin (Jardiance) 10 mg PO DAILY hydrochlorothiazide 12.5 mg PO DAILY lisinopril 10 mg PO DAILY lorazepam 1 mg PO BID PRN metformin 1,000 mg PO BID Tobacco use date assessed: 10/16/24 Dental Screening Dental Screen Date: 10/16/24 Did you have a dental visit in the last 12 months?: Yes Did you have a dental problem in the last 6 months where you did not have access to dental care?: No Was dental information given to patient?: Patient has dentist HPI annual/ kahlil Dr Pennington HPI Details 44-year-old female with past medical his tory of hypertension, diabetes mellitus last seen 02/[address] Pennington coming in for annual exam.? In review of the notes, patient was seen by GI 08/2024 EGD to be scheduled, CT of the abdomen and pelvis with contrast ordered to follow up on bone lesions, ultrasound of the abdomen ordered as well as labs and plan to follow up in 8 weeks. Presenting with concerns over rising blood sugar levels, hypertension management, and potential menopausal and anxiety symptoms. Her Type 2 Diabetes Mellitus has shown poor control, with her A1c increasing to 8.4%, likely due to a lack of Jardiance for over three months. Past ultrasound indicated no gallstones but did reveal fatty liver disease. Heart palpitations, seemingly linked to anxiety, have been reported, easing with anxiety medication. Her hypertension, with a recent high reading of 160/90 mmHg, appears higher today possibly due to not taking her morning dose of antihypertensive. She has also reported gaining weight. colonoscopy: 07/2024 repeat in 10 years pap smear: UTD through [facility] mammogram: will be due - referral sent vaccine: unsure if [facility] Medical History Intermittent palpitations Hypertension T2DM (type 2 diabetes mellitus) Surgical History Hx of cholecystectomy Hx of colonoscopy History of tubal ligation Family History Father No problems noted. Mother No problems noted. Social History Housing: House Alcohol intake: current Alcohol intake frequency: does not drink Patient Tobacco Use Status: Never used Tobacco Tobacco use type: Cigarette e-Cigarette/Vaping Use: Never Used Second Hand Smoke Exposure: No service: No Current occupational status: employed Current occupational exposures/hazards: No Cognitive needs: No Hearing needs: No Vision needs: No Questionnaire PHQ-9 Over the last 2 weeks, how often have you been bothered by any of the following problems? 1. Little interest or pleasure in doing things: not at all 2. Feeling down, depressed, or hopeless: not at all 3. Trouble falling or staying asleep, or sleeping too much: not at all 4. Feeling tired or having little energy: several days 5. Poor appetite or overeating: not at all 6. Feeling bad about yourself - or that you are a failure or have let yourself or your family down: several days 7. Trouble concentrating on things, such as reading the newspaper or watching television: not at all 8. Moving or speaking so slowly that other people could have noticed. Or the opposite - being so fidgety or restless that you have been moving around a lot more than usual: not at all 9. Thoughts that you would be better off or of hurting yourself in some way: not at all Total score: 2 Depression Screening Interpretation: Positive Depression Screening Follow-up: Existing condition and In treatment Depression Screening Done: Yes Source: Developed by Drs. Chase Muñoz, Cristal Urias, Luan Erickson and colleagues, with an educational angel luis from [employer]. Thrive Questionnaire Date Thrive assessed: 10/16/24 I am a: Patient What is your living situation today?: I have a steady place to live Within the past 12 months, did the food you bought not last and you didn't have the money to get more?: Sometimes True Within the past 12 months, did you worry whether your food would run out before you got money to buy more?: Sometimes True Do you have trouble paying for medicines?: No Do you have trouble getting transportation to medical appointments?: No Do you have trouble paying your heating and electricity bill?: No Do you have trouble taking care of your child, family member or friend?: No Do you have trouble with day-to-day activities such as bathing, preparing meals, shopping, managing finances, etc.?: No Are you currently unemployed and looking for a job?: No Are you interested in more education?: Yes Please select the resources that you would like help with: None Currently or been in a relationship where the following occur: No concerns reported THRIVE Score: 2 AUDIT C Alcohol Use Questionnaire (AUDIT-C) 1. How often do you have a drink containing alcohol?: Monthly or less 2. How many drinks containing alcohol do you have on a typical day when you are drinking?: 1 or 2 3. How often do you have six or more drinks on one occasion?: Never Total Score: 1 GRAZYNA-7 AMB Questionnaire GRAZYNA-7 Date GRAZYNA - 7 assessed: 10/16/24 Feeling nervous, anxious, or on edge: 1 = Several days Not being able to stop or control worryin = Not at all Worrying too much about different things: 1 = Several days Trouble relaxin = Not at all Being so restless that it is hard to sit still: 0 = Not at all Becoming easily annoyed or irritable: 1 = Several days Feeling afraid as if something awful might happen: 0 = Not at all Total GRAZYNA-7 score (0-4 normal; 5-9 mild; 10-14 moderate; 15-21 severe): 3 Source: Developed by Drs. Chase Muñoz, Cristal Urias, Luan Erickson and colleagues, with an educational angel luis from [employer]. GRAZYNA-7 Assessment Billing GRAZYNA-7 Assessment Tool: GRAZYNA-7 Assessment 14806 Review of Systems Const Denies body aches, Denies fatigue, Denies fever(s), Denies frequent falls, Denies headache(s) and Denies weakness Eyes Reports no additional complaints and Denies change in vision ENT Denies dysphagia, Denies dizziness, Denies facial pain, Denies headache(s), Denies nasal congestion and Denies odynophagia Card Denies chest pain, Denies syncope, Denies irregular heart rhythm, Denies leg edema, Denies lightheadedness and Denies dyspnea Resp Denies cough and Denies dyspnea GI Reports abdominal pain (RUQ), Denies constipation, Denies dysphagia, Denies dyspepsia, Reports heartburn, Denies diarrhea, Denies nausea, Denies odynophagia and Denies vomiting Denies urinary frequency, Denies dysuria, Denies urinary hesitancy and Denies urinary urgency Musc Denies back pain and Denies myalgias Skin/Breast Reports system reviewed and no additional complaints, except as documented Neuro Denies dizziness, Denies syncope, Denies frequent falls, Denies headache(s) and Denies weakness Psych Reports no additional complaints Endo Denies fatigue Physical exam (Primary Care) Vital Signs: Last Vital Signs Pulse 104 H 10/16/24 15:13 BP 130/90 H 10/16/24 15:13 Pulse Ox 98 10/16/24 15:13 Oxygen Delivery Method Room Air 10/16/24 15:13 BMI result Body Mass Index 31.3 Tobacco/Smoking Status: Tobacco use Status Tobacco use date assessed 10/16/24 10/16/24 15:16 Patient Tobacco Use Status Never used Tobacco 10/16/24 15:16 Tobacco use type Cigarette 10/16/24 15:16 e-Cigarette/Vaping Use Never Used 10/16/24 15:16 PHQ-9: PHQ-9 Score PHQ-9: Total score 2 10/16/24 15:16 Depression Screening Interpretation: Positive Depression Screening Follow-up: Existing condition and In treatment Thrive Assessment: Date of Thrive Assessment Date Thrive assessed 10/16/24 10/16/24 15:16 Currently or been in a relationship where the following occur: No concerns reported Const General: cooperative, healthy appearing, comfortable and no acute distress Orientation/consciousness: patient oriented x3 HENMT Head: Yes normocephalic Ears: hearing grossly normal bilaterally General nose exam: Normal external nose present Face and sinus: Yes normal facial exam and Yes sinuses nontender Mouth: Normal oral and palatal mucosa present and tongue normal Throat: Yes posterior oropharynx normal Eyes General: appearance normal, both eyes and all related structures Conjunctivae: conjunctivae normal Pupils: Equal, round and reactive pupils present EOM: EOMs intact bilaterally and No Nystagmus present Neck Neck: Yes full ROM and Yes no lymphadenopathy Chest Chest palpation & inspection: normal inspection of the chest Resp Effort & Inspection: normal respiratory effort Auscultation: clear to auscultation bilaterally, no crackles, no rales, no rhonchi and no wheezes Cardio Rate: regular rate Rhythm: regular rhythm Peripheral pulses: radial pulses present and dorsalis pedis present GI Inspection: Yes normal to inspection and No Abdominal wall edema Palpation (GI): Soft to palpation, not firm and nontender Auscultation: normal bowel sounds Rectal Exam - Female: deferred General: Yes no CVA tenderness Back/Spine/Pelvis Back: no CVA tenderness Skin General skin exam: no rashes or lesions noted Neuro General: patient oriented x3 Cranial nerves: Yes Equal, round and reactive pupils present, Yes Midline tongue present, Yes Ability to bilaterally elevate shoulders present and No Nystagmus present Gait exam (Neuro): Normal gait present Extrem General: Yes normal to inspection, Yes full ROM and No edema Psych Speech and movement: Normal speech and movement present Affect: normal affect Attitude: cooperative Insight: Good insight present (Psych) Judgement: Good judgement present (Psych) Results AMB Hemoglobin A1c AMB Hemoglobin A1c 8.4 % Last Edit by SAIDA Melara on 10/16/24 15 :34 Coding Level of Care Code Est Pt Prev Care 40-64y(60882) Diagnoses Intermittent palpitations R00.2 T2DM (type 2 diabetes mellitus) E11.9 Hypertension I10 Annual physical exam Z00.00 Fatty liver K76.0 Anxiety F41.9 Hypercholesterolemia E78.00 Additional Codes GRAZYNA-7 Assessment Billing - GRAZYNA-7 Assessment Tool: GRAZYNA-7 Assessment 24343 ([id number]) Assessment & Plan Assessment & Plan (1) Intermittent palpitations: Code(s): R00.2 - Palpitations Category: Medical Plan: Patient having intermittent palpitations associated with anxiety. She states she has episodes 1-2 times per month. Advised to reach out if symptoms become more persistent or if associated with symptoms. (2) T2DM (type 2 diabetes mellitus): Code(s): E11.9 - Type 2 diabetes mellitus without complications Category: Medical Plan: Decrease the amount of carbohydrates such as pasta, bread, rice, and potatoes and limit the amount of sweets. Although fruits are generally healthy they should be eaten in moderation as they are still high in sugar. Hemoglobin A1c goal of less than 7%. A1c in the clinic 8.4% today she states she has been without Jardiance for several months. Refilled the prescription today advised patient to reach out if she is unable to obtain this. At this time plan to keep current regimen until we can get Jardiance back on board. (3) Hypertension: Code(s): I10 - Essential (primary) hypertension Category: Medical Plan: Continue on current blood pressure medication. Avoid salt intake and encourage healthy diet and regular exercise. Blood pressure elevated in the office today likely due to the lack of antihypertensives this morning. Advised patient to take the blood pressure 4 to 5 times a week and reach out to the office if blood pressures are above 140/90. Plan to increase lisinopril if blood pressures remain elevated. (4) Annual physical exam: Code(s): Z00.00 - Encounter for general adult medical examination without abnormal findings Category: Medical Plan: Patient is up-to-date on all recommended routine screenings and vaccinations for her age. Blood work is up-to-date and has been reviewed with patient today. Healthy diet and regular exercise is encouraged. (5) Fatty liver: Code(s): K76.0 - Fatty (change of) liver, not elsewhere classified Category: Medical Plan: Healthy diet and regular exercise is encouraged. (6) Anxiety: Code(s): F41.9 - Anxiety disorder, unspecified Category: Medical Plan: Patient having intermittent anxiety managed with lorazepam as needed. She has not had to use. Plan to continue on this medication as needed. (7) Hypercholesterolemia: Code(s): E78.00 - Pure hypercholesterolemia, unspecified Category: Medical Plan: Avoid foods that are high in cholesterol such as red meat, fried foods, eggs and baked goods. Triglyceride goal of less than 150 and LDL goal of less than 100. Patient has not had cholesterol labs in several years plan to order for repeat cholesterol labs. Plan We outlined strategies to address her diabetes by resuming Jardiance therapy to manage her elevated A1c readings. I advised checking alternate pharmacies for medication availability. Blood pressure management will focus on medication adherence and monitoring for the next two weeks, adjusting dosis only if her home readings indicate. We aim to monitor her cholesterol levels with anticipatory fasting blood work scheduled prior to her next appointment and for balancing diabetes and hypertensive care. I reassured that current anxiety management aligns with her needs, as consistent anxiety medication usage has provided symptomatic relief. Continued focus on lifestyle adaptations to moderate menopause symptoms is encouraged. Preventative care through sustained exercise, dietary improvements, and monitoring chronic conditions were emphasized. This note was constructed using voice recognition software. While every effort has been made to ensure accuracy and process supervisor, still areas may have been included sometimes these areas may affect the content or meeting of the given symptoms. Total time spent caring for the patient today was 30 minutes. This includes time spent before the visit reviewing the chart, time spent during the visit, and time spent after the visit and documentation. Patient was informed and verbally consented to the use of an ambient scribe for clinic note documentation during this visit. Orders: Orders AMB Hemoglobin A1c Today Z13.9 - Encounter for screening, unspecified MM tomosynthesis screening BI Today Z12.31 - Encounter for screening mammogram for malignant neoplasm of breast Lipid Panel Today E78.00 - Pure hypercholesterolemia, unspecified Medications: New empagliflozin (Jardiance) 10 mg PO DAILY 90 tabs 0RF Refilled lisinopril 10 mg PO DAILY 90 tabs 2RF lorazepam 1 mg PO BID PRN 20 tabs 0RF anxiety hydrochlorothiazide 12.5 mg PO DAILY 30 caps 8RF metformin 1,000 mg PO BID 180 tabs 8RF
--- OUTSIDE RECORDS SUMMARY | 2024-10-16 17:51 | XMS_ITS | Clinical Summary ---
Author Organization [address] Address [address] [place] [address] Phone Care Team Providers Care Consulting Psychiatrist Name Role Phone Modesto Pennington MD Primary Care Provider Allergies No known active allergies Medications Jardiance [...] Team Description 08/25/2024 Telephone Gastroenterology - [address] [phone] Rebecca Jesus MA Results 08/20/2024 2:17 PM EST Anesthesia Event [facility] Endoscopy [address] [place] [phone] Fortino Strange MD 08/20/2024 1:02 PM EST - 08/20/2024 11:59 PM EST Hospital Encounter [facility] Endoscopy [address] [place] [address] Aleksandr Luna MD McAdams, Megan, CRNA Dasilva, John E, MD Family history of colonic polyps Discharge Disposition: Home or Self Care from Last 3 Months Surgical History Surgery Date Site/Laterality Comments HAND SURGERY Right CHOLECYSTECTOMY TUBAL LIGATION Medical History Medical History Date Comments Hypertension Diabetes mellitus ([facility] V24, [facility] V28) Social History Tobacco Use Types Packs/Day Years [...] 1997 COVID-19 Vaccine (2023-2 5 season) 2024 Cholesterol Screening (Lipid Panel) 07/04/2024 Depression Screening 07/04/2024 HIV Screening 07/04/2024 Hepatitis C Screening 07/04/2024 Social Influencers of Health Screening 07/04/2024 Diabetes: Annual Urine Albumin-Creatinine Ratio (uACR) 08/20/2024 Diabetes: Blood Sugar Contro l Test (HGBA1C) 08/20/2024 Hypertension/CHF/CAD Annual BMP Blood Test 08/20/2024 Influenza Vaccine (Season Ended) 2025 Cervical Cancer Screening: P ap Smear 07/03/2027 [...] age to complete this topic Meningococcal B Vaccine Aged Out No l onger eligible based on patient's age to complete [...] without abnormal findings from Last 3 Months or Most Recently Relevant to Health Maintenance Results * COLONOSCOPY Anesthesia - MAC; [facility] END[facility]COPY (08/20/2024 2:39 PM EST) Anatomical Region [...] ? purposes. Narrative 08/20/2024 2:44 PM EST [facility] GI Patient Name: Gen Purcell Procedure [...] Procedure Code(s): ? --- Professional --- ? 85298, Colonoscopy, flexible; with biopsy, single or ? multiple Diagnosis Code(s): ? --- Professional --- ? Z12.11, Encounter for screening for malignant neoplasm ? of colon ? D12.0, Benign neoplasm of cecum ? K57.30, Diverticulosis of large intestine without ? perforation or abscess without bleeding CPT copyright 2020 [employer]. All rights reserved. The codes documented in this report are preliminary and upon certified medical records coder review may be revised to meet current compliance requirements. Aleksandr Luna MD 08/20/2024 2:44:15 PM This report has been signed electronically.Aleksandr Luna MD Number of Addenda: 0 Note Initiated On: 08/20/2024 2:07 PM Scope In: Scope Out: ? Endoscopy Department at [facility] - [address] [place] [address], ? [place] [address] Procedure Note Aleksandr Luna MD - 08/20/2024 [facility] GI Patient Name: Gen Purcell Procedure [...] retroflexion views. Procedure Code(s): --- Professional --- 57327, Colonoscopy, flexible; with biopsy, singleor multiple Diagnosis Code(s): --- Professional --- Z12.11, Encounter for screening for malignantneoplasm of colon D12.0, Benign neoplasm of cecum K57.30, Diverticulosis of large intestine without perforation or abscess without bleeding CPT copyright 2020 [employer]. All rights reserved. The codes documented in this report are preliminary and upon certified medical records coder reviewmay be revised to meet current compliance requirements. Aleksandr Luna MD 08/20/2024 2:44:15 PM This report has been signed electronically.Aleksandr Luna MD Number of Addenda: 0 Note Initiated On: 08/20/2024 2:07 PM Scope In: Scope Out: Endoscopy Department at [facility] - [address] [place] [phone] IMPRESSION: - The entire examined colon is [...] levels are examined. 08/22/2024 9:14 AM EST [facility] Gross Description A. Large Intestine, Cecum, polyp: Labeled colon cecum polyp . Received in formalin is a 0.4 cm irregular valdez mucosal tissue fragment which is wrapped in paper and submitted in toto in one cassette, one piece, multiple levels on one slide. LAUREN 08/22/2024 9:14 AM EST [facility] Disclaimer Unless otherwise specified, all tissue is 10% NB formalin fixed and paraffin embedded. 08/22/2024 9:14 AM EST [facility] Tissue Cecum structure / Unknown 08/20/2024 2:32 PM EST 08/20/2024 4:00 PM EST Aleksandr Luna MD LAB PATHOLOGY ORDERABLES Fi nal Result [facility] [address] [place] [address], * Pap smear (07/03/2024 12:00 AM EST) Interpretation Negative for intraepithelial lesion or malignancy 07/09/2024 4:58 PM [facility] General Categorization Negative 07/09/2024 4:58 PM [facility] LMP 06/15/2024 07/09/2024 4:58 PM [facility] Specimen Adequacy Satisfactory for evaluation, endocervical/dent sformation zone component absent 07/09/2024 4:58 PM [facility] Pap Methodology Liquid Based Pap Test 07/09/2024 4:58 PM [facility] Disclaimer The Pap test is a screening test which carries an inherent false negative rate. These test results should be correlated with the patient's clinical findings and history. This Pap test was processed using an automated screening system. Technical cytopathology services provided by [facility], at [address] [place] [id number] (CLIA # [id number]/Maeve Hobson MD, Rehab Consultant.) 07/09/2024 4:58 PM [facility] Console Pap Interpretation Reported 07/09/2024 4:58 PM [facility] Brushing/Spatula Cervix uteri structure / Unknown 07/03/2024 07/04/2024 6:55 AM EST Sudhakar Lawson MD LAB CYTOLOGY ORDERABLES Final Result [facility] [address] [place] [address], from Last 3 Months or Most Recently Relevant to Health Maintenance Insurance [facility] Care Teams Consulting Psychiatrist Relationship Specialty Start Date End Date Modesto Pennington MD [address] [place] [address] [address] [place] [address] PCP - General Internal Medicine 12/23/18
--- OUTSIDE RECORDS SUMMARY | 2024-10-16 17:51 | XMS_ITS | Encounter Summary ---
Author Organization [facility] Address [address] [place] [address] Care Team Providers Care Respiratory Therapy Director Name Role Phone Modesto Pennington MD Primary Care Provider [phone] Encounter Details Date Type Department Care Team (Latest Contact Info) Description 07/04/2024 Lab Requisition [facility] - Main Lab [address] [facility] [place] [phone] Sudhakar Lawson MD [address] [phone] Encounter for gynecological examination (general) [...] lesion or malignancy 07/09/2024 4:58 PM EST [facility] General Categorization Negative 07/09/2024 4:[address] [facility] LMP 06/15/2024 07/09/2024 4:[address] [facility] Specimen Adequacy Satisfactory for evaluation, endocervical/dent sformation zone component absent 07/09/2024 4:[address] [facility] Pap Methodology Liquid Based Pap Test 07/09/2024 4:[address] [facility] Disclaimer The Pap test is a screening test which carries an inherent false negative rate. These test results should be correlated with the patient's clinical findings and history. This Pap test was processed using an automated screening system. Technical cytopathology services provided by [facility], at [address] [place] [address] (CLIA # [id number]/Maeve Hobson MD, Water And Fire Technician.) 07/09/2024 4:[address] [facility] Console Pap Interpretation Reported 07/09/2024 4:[address] [facility] Brushing/Spatula Cervix uteri structure / Unknown 07/03/2024 07/04/2024 6:55 AM EST us Sudhakar Lawson MD LAB CYTOLOGY ORDERABLES Final Result Performing Organization Address City/State/[facility] Co de Phone Number [facility] [address] [place] [address], documented in this encounter Visit Diagnoses Diagnosis Encounter for gynecological examination (general) (routine) without abnormal findings documented in this encounter Care Teams Respiratory Therapy Director Relationship Specialty Start Date End Date Modesto Pennington MD [address] [place] [id number] PCP - General Internal Medicine 12/23/18 documented as of this encounter
--- OUTSIDE RECORDS SUMMARY | 2024-10-16 17:51 | XMS_ITS | Continuity of Care Document ---
Author Organization [facility] [address] [facility] [address] [place] [address] Phone [phone] Care Team Providers Care Headwaitress Name Role Phone Moedsto Pennington Care Team Information Records Analysis Manager [phone] Problems Active Problems Provider Date Type 2 [...] Medications SIG Qnty Indications Ordering Provider Date Cjkgugbwn10yt Tablets 1 by mouth every day 90tabs Jimmy العراقي M.D. 09/28/2023 Zjkigsssq9bg Tablets Take 1 Tablet By Mouth Twice Daily as Needed For Anxiety Modesto Pennington Metformin [id number] Tablets Take 1 Tablet By Mouth Twice Daily Modesto Pennington Pqulhtfwcidhyorfbuz21 .5mg Capsules Take 1 Capsule By Mouth Daily Modesto Pennington Ccfcchhowg92nz Tablets Take 1 Tablet By Mouth Daily [...] 7.5% TSH With Reflex To FT4 04/11/2023 [facility] Lab TSH With Reflex To FT4 1.88 uIU/mL (0.4-4.2) Basic Metabolic Panel 04/11/2023 [facility] Reference Lab Glucose 176 mg/dL High (70-99) BUN 15 mg/dL (6-20) Creatinine 0.5 mg/dL (0.5-1.0) Sodium 134 mmol/L (133-145) Potassium 4.4 mmol/L (3.6-5.2) Chloride 99 mmol/L (98-107) Bicarbonate 25 mmol/L (22-29) Anion Gap 10 (4-17) Calcium 10.0 mg/dL (8.6-10.5 ) Estimated GFR Creatinine 116 ML/MIN/1.7 3M2 1 Urinary Microalbumin 04/11/2023 [facility] Reference Lab Micro-Albumin <12.0 mg/L (<20) 2 [...]
== END 2024-10-16 15:46 | disposition home or self-care (01) ==
LOC: HO.HMCH 15:06
DX: R00.2 Palpitations (principal); E11.9 Type 2 diabetes mellitus without complications; I10 Essential (primary) hypertension; Z00.00 Encounter for general adult medical examination without abnormal findings; K76.0 Fatty (change of) liver, not elsewhere classified; F41.9 Anxiety disorder, unspecified; E78.00 Pure hypercholesterolemia, unspecified; Z13.9 Encounter for screening, unspecified

== ENCOUNTER → 2024-10-16 15:05 | Outpatient (BNVA) | payer OTHER, SELFPAY | DX: Z00.00 Encounter for general adult medical examination without abnormal findings (principal); R00.2 Palpitations; E11.9 Type 2 diabetes mellitus without complications; I10 Essential (primary) hypertension; K76.0 Fatty (change of) liver, not elsewhere classified; F41.9 Anxiety disorder, unspecified; E78.00 Pure hypercholesterolemia, unspecified; Z79.899 Other long term (current) drug therapy | CPT/HCPCS: 83036; 96127 ==

== ENCOUNTER 2024-10-22 13:56 | Outpatient (REF) | payer OTHER, SELFPAY ==
--- OUTSIDE RECORDS SUMMARY | 2024-10-22 15:10 | XMS_ITS | Clinical Summary ---
Author Organization [address] Address [address] [place] [address] Phone Care Team Providers Care Commercial Lines Sales Executive Name Role Phone Modesto Pennington MD Primary Care Provider [phone] Allergies No known active allergies Medications Jardiance [...] Team Description 08/25/2024 Telephone Gastroenterology - [address] [phone] Rebecca Jesus [place] Results 08/20/2024 2:17 PM EST Anesthesia Event [facility] Endoscopy [address] [place] [phone] Fortino Strange MD 08/20/2024 1:02 PM EST - 08/20/2024 11:59 PM EST Hospital Encounter [facility] Endoscopy [address] [facility] [place] [address] Aleksandr Luna MD McAdams, Megan, CRNA Dasilva, John E, MD Family history of colonic polyps Discharge Disposition: Home or Self Care from Last 3 Months Surgical History Surgery Date Site/Laterality Comments HAND SURGERY Right CHOLECYSTECTOMY TUBAL LIGATION Medical History Medical History Date Comments Hypertension Diabetes mellitus ([facility] V24, [facility] V28) Social History Tobacco Use Types Packs/Day [...] Maintenance Results * COLONOSCOPY Anesthesia - MAC; [facility] ENDOSCOPY (08/20/2024 2:39 PM EST) Anatomical [...] Procedure Code(s): ? --- Professional --- ? 42784, Colonoscopy, flexible; with biopsy, single or ? multiple Diagnosis Code(s): ? --- Professional --- ? Z12.11, Encounter for screening for malignant neoplasm ? of colon ? D12.0, Benign neoplasm of cecum ? K57.30, Diverticulosis of large intestine without ? perforation or abscess without bleeding CPT copyright 2020 [employer]. All rights reserved. The codes documented in this report are preliminary and upon medical surgery nurse review may be revised to meet current compliance requirements. Aleksandr Luna MD 08/20/2024 2:44:15 PM This report has been signed electronically.Aleksandr Luna MD Number of Addenda: 0 Note Initiated On: 08/20/2024 2:07 PM Scope In: Scope Out: ? Endoscopy Department at [facility] - [address] [place] [address], ? [place] [address] Procedure Note Aleksandr Luna MD - 08/20/2024 [...] retroflexion views. Procedure Code(s): --- Professional --- 22980, Colonoscopy, flexible; with biopsy, singleor multiple Diagnosis Code(s): --- Professional --- Z12.11, Encounter for screening for malignantneoplasm of colon D12.0, Benign neoplasm of cecum K57.30, Diverticulosis of large intestine without perforation or abscess without bleeding CPT copyright 2020 [employer]. All rights reserved. The codes documented in this report are preliminary and upon medical surgery nurse reviewmay be revised to meet current compliance requirements. Aleksandr Luna MD 08/20/2024 2:44:15 PM This report has been signed electronically.Aleksandr Luna MD Number of Addenda: 0 Note Initiated On: 08/20/2024 2:07 PM Scope In: Scope Out: Endoscopy Department at [facility] - [address] [place] [phone] IMPRESSION: - The entire examined colon is [...] levels are examined. 08/22/2024 9:[address] [facility] Gross Description A. Large Intestine, Cecum, polyp: Labeled colon cecum polyp . Received in formalin is a 0.4 cm irregular valdez mucosal tissue fragment which is wrapped in paper and submitted in toto in one cassette, one piece, multiple levels on one slide. LAUREN 08/22/2024 9:[address] [facility] Disclaimer Unless otherwise specified, all tissue is 10% NB formalin fixed and paraffin embedded. 08/22/2024 9:[address] [facility] Tissue Cecum structure / Unknown 08/20/2024 2:32 PM EST 08/20/2024 4:00 PM EST Aleksandr Luna MD LAB PATHOLOGY ORDERABLES Fi nal Result [facility] [address] [place] [address], * Pap smear (07/03/2024 12:00 AM EST) Interpretation Negative for intraepithelial lesion or malignancy 07/09/2024 4:58 PM [facility] General Categorization Negative 07/09/2024 4:58 PM [facility] LMP 06/15/2024 07/09/2024 4:58 PM [facility] Specimen Adequacy Satisfactory for evaluation, endocervical/dent sformation zone component absent 07/09/2024 4:58 PM [facility] Pap Methodology Liquid Based Pap Test 07/09/2024 4:58 PM [facility] Disclaimer The Pap test is a screening test which carries an inherent false negative rate. These test results should be correlated with the patient's clinical findings and history. This Pap test was processed using an automated screening system. Technical cytopathology services provided by [facility], at [address] [place] [address] (CLIA # [id number]/Maeve Hobson MD, Dials Supervisor.) 07/09/2024 4:58 PM [facility] Console Pap Interpretation Reported 07/09/2024 4:58 PM [facility] Brushing/Spatula Cervix uteri structure / Unknown 07/03/2024 07/04/2024 6:55 AM EST Sudhakar Lawson MD LAB CYTOLOGY ORDERABLES Final Result [facility] [address] [place] [address], from Last 3 Months or Most Recently Relevant to Health Maintenance Insurance [facility] Care Teams Commercial Lines Sales Executive Relationship Specialty Start Date End Date Modesto Pennington MD [address] [place] [address] [address] [place] [address] PCP - General Internal Medicine 12/23/18
--- OUTSIDE RECORDS SUMMARY | 2024-10-22 15:10 | XMS_ITS | Encounter Summary ---
Author Organization [facility] Address [address] [place] [address] Care Team Providers Care Ticket Manager Name Role Phone Modesto Pennington MD Primary Care Provider [phone] Encounter Details Date Type Department Care Team (Latest Contact Info) Description 07/04/2024 Lab Requisition [facility] - Main Lab 299 [facility] [phone] Sudhakar Lawson MD [address] [address] Encounter for gynecological examination (general) [...] lesion or malignancy 07/09/2024 4:58 PM EST [facility] General Categorization Negative 07/09/2024 4:58 PM [facility] LMP 06/15/2024 07/09/2024 4:58 PM [facility] Specimen Adequacy Satisfactory for evaluation, endocervical/dent sformation zone component absent 07/09/2024 4:58 PM [facility] Pap Methodology Liquid Based Pap Test 07/09/2024 4:58 PM [facility] Disclaimer The Pap test is a screening test which carries an inherent false negative rate. These test results should be correlated with the patient's clinical findings and history. This Pap test was processed using an automated screening system. Technical cytopathology services provided by [facility], at [address] [place] [address] (CLIA # [id number]/Maeve Hobson MD, Riprap Placer.) 07/09/2024 4:58 PM [facility] Console Pap Interpretation Reported 07/09/2024 4:58 PM [facility] Brushing/Spatula Cervix uteri structure / Unknown 07/03/2024 07/04/2024 6:55 AM EST us Sudhakar Lawson MD LAB CYTOLOGY ORDERABLES Final Result Performing Organization Address City/State/[facility] Co de Phone Number [facility] [address] [place] [address], documented in this encounter Visit Diagnoses Diagnosis Encounter for gynecological examination (general) (routine) without abnormal findings documented in this encounter Care Teams Ticket Manager Relationship Specialty Start Date End Date Modesto Pennington MD [address] [place] [address] PCP - General Internal Medicine 12/23/18 documented as of this encounter
--- OUTSIDE RECORDS SUMMARY | 2024-10-22 15:11 | XMS_ITS | Continuity of Care Document ---
Author Organization [facility] [address] [facility] [address] [place] [address] Phone [phone] Care Team Providers Care Superintendent System Operation Name Role Phone Modesto Pennington Care Team Information Physician Advisor [phone] Problems Active Problems Provider Date Type 2 [...] Medications SIG Qnty Indications Ordering Provider Date Yrrlgcmsm92iw Tablets 1 by mouth every day 90tabs Jimmy العراقي M.D. 09/28/2023 Kkazpcbrd9av Tablets Take 1 Tablet By Mouth Twice Daily as Needed For Anxiety Modesto Pennington Metformin [id number] Tablets Take 1 Tablet By Mouth Twice Daily Modesto Pennington Iohwdhlyrtkxueotdre06 .5mg Capsules Take 1 Capsule By Mouth Daily Modesto Pennington Ilsyqzihys45ug Tablets Take 1 Tablet By Mouth Daily [...] 7.5% TSH With Reflex To FT4 04/11/2023 [facility] Reference Lab TSH With Reflex To FT4 1.88 uIU/mL (0.4-4.2) Basic Metabolic Panel 04/11/2023 [facility] Lab Glucose 176 mg/dL High (70-99) BUN 15 mg/dL (6-20) Creatinine 0.5 mg/dL (0.5-1.0) Sodium 134 mmol/L (133-145) Potassium 4.4 mmol/L (3.6-5.2) Chloride 99 mmol/L (98-107) Bicarbonate 25 mmol/L (22-29) Anion Gap 10 (4-17) Calcium 10.0 mg/dL (8.6-10.5 ) Estimated GFR Creatinine 116 ML/MIN/1.7 3M2 1 Urinary Microalbumin 04/11/2023 [facility] Lab Micro-Albumin <12.0 mg/L (<20) [...]
[2024-10-22] MEDS: iohexoL 350 MG/ML 100 ML INFUS..BTL IV (16:26)
[2024-10-22] MEDS: Barium Sulfate Oral (Mocha) 450 ML ORAL.SUSP PO ×2 (16:28→16:29)
== END 2024-10-22 13:57 | disposition home or self-care (01) ==
LOC: HO.CT 13:56
PROVIDERS: PCP Internal Medicine; Visit Provider Internal Medicine
DX: R93.7 Abnormal findings on diagnostic imaging of other parts of musculoskeletal system (principal); Q78.2 Osteopetrosis
CPT/HCPCS: 74177; Q9967

== ENCOUNTER → 2024-10-22 13:58 | Outpatient (BNV) | payer OTHER, SELFPAY | PROVIDERS: PCP Internal Medicine; Visit Provider Radiology Diagnostic Radiology | DX: R93.7 Abnormal findings on diagnostic imaging of other parts of musculoskeletal system (principal) | CPT/HCPCS: 74177 ==

== ENCOUNTER 2024-10-24 14:14 | Outpatient (AMB) | payer OTHER, SELFPAY ==
[2024-10-24 14:16] VITALS: BP 145/100; PULSE 111; BMI 29.8
--- NOTE | 2024-10-24 14:16 | A.OFFVIS_ITS ---
Vital Signs 10/24/24 14:16 Height 5 ft 2 in Weight 163 lb 2.273 oz BMI 29.8 BP 145/100 H Blood Pressure Location Lt brachial Position Sitting Pulse 111 H Intake Visit Reasons: 8 WKS F/U Intake Note: Gen presents in the office as a 8 week follow up. CC: She states that she had a colonoscopy - she has issues with her stomach. She states that she gets constipation and diarrhea and she thinks it is due to metformin. Embedded Software Manager Required: No Allergies No Known Allergies Allergy (Verified 10/24/24 14:18) HPI Comments Details: 44 y.o F with PMH of CCY 2018, who is here for RUQ pain. Pain started almost 6 months ago and comes and goes. Triggered by eating certain foods. Reminiscent of biliary colic but pt is s/p CCY as above. Pain lasts almost an hour. Sometimes also assoc with palpitations but has had cardiac w/up which was negative per her report. Nausea + , no vomiting. Bloating +. No change in appetite. No unintentional weight loss. No fevers or chills. No recent travel. Takes CAM supplements: Ashwagandha Parsley Hibiscus tea Bitter melon Preston 07/2024 (Dr Luna) - one polyp - recall in 10 years. 10/24/24: Pt here for follow up. CT done but results not finalized yet. Labs reviewed and are normal. She reports persistent sx of R sided abd pain which is mostly post prandial. EGD not booked yet. Laboratory Tests 09/25/24 08:42 Hgb 12.7 Hct 36.6 L Plt Count 233 Creatinine 0.62 AST 15 ALT 13 TSH 2.01 IgA 370 H Tiss Transglutamin IgA <1.0 PFSH Medical History Intermittent palpitations Hypertension T2DM (type 2 diabetes mellitus) Surgical History Hx of cholecystectomy Hx of colonoscopy History of tubal ligation Family History Father No problems noted. Mother No problems noted. Social History Housing: House Alcohol intake: current Alcohol intake frequency: does not drink Patient Tobacco Use Status: Never used Tobacco Tobacco use type: Cigarette e-Cigarette/Vaping Use: Never Used Second Hand Smoke Exposure: No service: No Current occupational status: employed Current occupational exposures/hazards: No Cognitive needs: No Hearing needs: No Vision needs: No Review of Systems Const All systems reviewed & are unremarkable except as noted in HPI and below Physical Exam Vital Signs: Last Vital Signs Pulse 111 H 10/24/24 14:16 BP 145/100 H 10/24/24 14:16 BMI result Body Mass Index 29.8 No apparent distress Nonicteric Abdomen soft, nondistended Alert and oriented x3, normal gait Assessment & Plan Assessment & Plan (1) Colicky RUQ abdominal pain: Code(s): R10.11 - Right upper quadrant pain Category: Medical (2) Hx of cholecystectomy: Code(s): Z90.49 - Acquired absence of other specified parts of digestive tract Category: Surgical (3) Abnormal CT of thoracic spine: Code(s): R93.7 - Abnormal findings on diagnostic imaging of other parts of musculoskeletal system Category: Medical Plan Celiac sero negative. CT results pending. EGD as previously reviewed, pt requests sooner appt as [place] be going [place] of [place] later this month and would like to have this done before. Again clarified that EGD will be diagnostic and given location and charactter of pain may be negative as low suspicion for gastritis, PUD etc. Plan: - Will check with executive vice president business development for sooner slot for EGD - Follow CT results Follow up after EGD Coding Level of Care Code Est Pt Level 4 (14623) Diagnoses Colicky RUQ abdominal pain R10.11 Hx of cholecystectomy Z90.[address] of thoracic spine R93.7
--- OUTSIDE RECORDS SUMMARY | 2024-10-24 14:32 | XMS_ITS | Encounter Summary ---
Author Organization [facility] Address [address] [place] [address] Care Team Providers Care Bending Machine Operator Name Role Phone Modesto Pennington MD Primary Care Provider [phone] Encounter Details Date Type Department Care Team (Latest Contact Info) Description 07/04/2024 Lab Requisition [facility] - Main Lab 299 [facility] [place] [phone] Sudhakar Lawson MD [address] [address] Encounter for gynecological examination (general) [...] lesion or malignancy 07/09/2024 4:58 PM EST [facility] General Categorization Negative 07/09/2024 4:58 PM [facility] LMP 06/15/2024 07/09/2024 4:58 PM [facility] Specimen Adequacy Satisfactory for evaluation, endocervical/dent sformation zone component absent 07/09/2024 4:58 PM [facility] Pap Methodology Liquid Based Pap Test 07/09/2024 4:58 PM [facility] Disclaimer The Pap test is a screening test which carries an inherent false negative rate. These test results should be correlated with the patient's clinical findings and history. This Pap test was processed using an automated screening system. Technical cytopathology services provided by [facility], at [address] [place] [address] (CLIA # [id number]/Maeve Hobson MD, Barge Captain.) 07/09/2024 4:58 PM [facility] Console Pap Interpretation Reported 07/09/2024 4:58 PM [facility] Brushing/Spatula Cervix uteri structure / Unknown 07/03/2024 07/04/2024 6:55 AM EST us Sudhakar Lawson MD LAB CYTOLOGY ORDERABLES Final Result Performing Organization Address City/State/[facility] Co de Phone Number [facility] [address] [place] [address], documented in this encounter Visit Diagnoses Diagnosis Encounter for gynecological examination (general) (routine) without abnormal findings documented in this encounter Care Teams Bending Machine Operator Relationship Specialty Start Date End Date Modesto Pennington MD [address] [place] [address] PCP - General Internal Medicine 12/23/18 documented as of this encounter
--- OUTSIDE RECORDS SUMMARY | 2024-10-24 14:32 | XMS_ITS | Continuity of Care Document ---
Author Organization [facility] 2 [facility] [address] [place] [address] Phone [phone] Care Team Providers Care Waist Fitter Name Role Phone Modesto Pennington Care Team Information Business Analyst Ecommerce + [phone] Problems Active Problems Provider Date Type 2 [...] Medications SIG Qnty Indications Ordering Provider Date Zlvazckmh11wl Tablets 1 by mouth every day 90tabs Jimmy العراقي M.D. 09/28/2023 Huhfojbeo7qw Tablets Take 1 Tablet By Mouth Twice Daily as Needed For Anxiety Modesto Pennington Metformin [id number] Tablets Take 1 Tablet By Mouth Twice Daily Modesto Pennington Ozxazjlaeajxdjsafec25 .5mg Capsules Take 1 Capsule By Mouth Daily Modesto Pennington Qfoayjghjv63kw Tablets Take 1 Tablet By Mouth Daily [...] 7.5% TSH With Reflex To FT4 04/11/2023 [facility] TSH With Reflex To FT4 1.88 uIU/mL (0.4-4.2) Basic Metabolic Panel 04/11/2023 [facility] Lab Glucose 176 mg/dL High (70-99) BUN 15 mg/dL (6-20) Creatinine 0.5 mg/dL (0.5-1.0) Sodium 134 mmol/L (133-145) Potassium 4.4 mmol/L (3.6-5.2) Chloride 99 mmol/L (98-107) Bicarbonate 25 mmol/L (22-29) Anion Gap 10 (4-17) Calcium 10.0 mg/dL (8.6-10.5 ) Estimated GFR Creatinine 116 ML/MIN/1.7 3M2 1 Urinary Microalbumin 04/11/2023 [facility] Lab Micro-Albumin <12.0 mg/L (<20) [...]
--- OUTSIDE RECORDS SUMMARY | 2024-10-24 14:32 | XMS_ITS | Clinical Summary ---
Author Organization [address] Address [address] [place] [address] Phone Care Team Providers Care Edge Finisher Name Role Phone Modesto Pennington MD Primary Care Provider [phone] Allergies No known active allergies Medications Jardiance [...] Team Description 08/25/2024 Telephone Gastroenterology - [address] [phone] Rebecca Jesus [place] Results 08/20/2024 2:17 PM EST Anesthesia Event [facility] Endoscopy [address] [place] [phone] Fortino Strange MD 08/20/2024 1:02 PM EST - 08/20/2024 11:59 PM EST Hospital Encounter [facility] Endoscopy [address] [place] [address] Aleksandr Luna MD McAdams, Megan, CRNA Dasilva, John E, MD Family history of colonic polyps Discharge Disposition: Home or Self Care from Last 3 Months Surgical History Surgery Date Site/Laterality Comments HAND SURGERY Right CHOLECYSTECTOMY TUBAL LIGATION Medical History Medical History Date Comments Hypertension Diabetes mellitus ([facility] V24, [facility] V28) Social History Tobacco Use Types [...] Maintenance Results * COLONOSCOPY Anesthesia - MAC; [facility] ENDOSCOPY (08/20/2024 2:39 PM EST) Anatomical [...] ? purposes. Narrative 08/20/2024 2:44 PM EST [facility] GI Patient Name: Gen Purcell Procedure [...] Procedure Code(s): ? --- Professional --- ? 25762, Colonoscopy, flexible; with biopsy, single or ? multiple Diagnosis Code(s): ? --- Professional --- ? Z12.11, Encounter for screening for malignant neoplasm ? of colon ? D12.0, Benign neoplasm of cecum ? K57.30, Diverticulosis of large intestine without ? perforation or abscess without bleeding CPT copyright 2020 [employer]. All rights reserved. The codes documented in this report are preliminary and upon veneer sawyer review may be revised to meet current compliance requirements. Aleksandr Luna MD 08/20/2024 2:44:15 PM This report has been signed electronically.Aleksandr Luna MD Number of Addenda: 0 Note Initiated On: 08/20/2024 2:07 PM Scope In: Scope Out: ? Endoscopy Department at [facility] - [address] [place] [address], ? [place] [address] Procedure Note Aleksandr Luna MD - 08/20/2024 [facility] GI Patient Name: Gen Purcell Procedure [...] retroflexion views. Procedure Code(s): --- Professional --- 71611, Colonoscopy, flexible; with biopsy, singleor multiple Diagnosis Code(s): --- Professional --- Z12.11, Encounter for screening for malignantneoplasm of colon D12.0, Benign neoplasm of cecum K57.30, Diverticulosis of large intestine without perforation or abscess without bleeding CPT copyright 2020 [employer]. All rights reserved. The codes documented in this report are preliminary and upon veneer sawyer reviewmay be revised to meet current compliance requirements. Aleksandr Luna MD 08/20/2024 2:44:15 PM This report has been signed electronically.Aleksandr Luna MD Number of Addenda: 0 Note Initiated On: 08/20/2024 2:07 PM Scope In: Scope Out: Endoscopy Department at [facility] - [address] [place] [phone] IMPRESSION: - The entire examined colon is [...] levels are examined. 08/22/2024 9:14 AM EST [facility] Gross Description A. Large Intestine, Cecum, polyp: Labeled colon cecum polyp . Received in formalin is a 0.4 cm irregular valdez mucosal tissue fragment which is wrapped in paper and submitted in toto in one cassette, one piece, multiple levels on one slide. LAUREN 08/22/2024 9:14 AM EST [facility] Disclaimer Unless otherwise specified, all tissue is 10% NB formalin fixed and paraffin embedded. 08/22/2024 9:14 AM EST [facility] Tissue Cecum structure / Unknown 08/20/2024 2:32 PM EST 08/20/2024 4:00 PM EST Aleksandr Luna MD LAB PATHOLOGY ORDERABLES Fi nal Result [facility] [address] [place] [address], * Pap smear (07/03/2024 12:00 AM EST) Interpretation Negative for intraepithelial lesion or malignancy 07/09/2024 4:58 PM [facility] General Categorization Negative 07/09/2024 4:58 PM [facility] LMP 06/15/2024 07/09/2024 4:58 PM [facility] Specimen Adequacy Satisfactory for evaluation, endocervical/dent sformation zone component absent 07/09/2024 4:58 PM [facility] Pap Methodology Liquid Based Pap Test 07/09/2024 4:58 PM [facility] Disclaimer The Pap test is a screening test which carries an inherent false negative rate. These test results should be correlated with the patient's clinical findings and history. This Pap test was processed using an automated screening system. Technical cytopathology services provided by [facility], at [address] [place] [address] (CLIA # [id number]/Maeve Hobson MD, Varnish Inspector.) 07/09/2024 4:58 PM [facility] Console Pap Interpretation Reported 07/09/2024 4:58 PM [facility] Brushing/Spatula Cervix uteri structure / Unknown 07/03/2024 07/04/2024 6:55 AM EST Sudhakar Lawson MD LAB CYTOLOGY ORDERABLES Final Result [facility] [address] [place] [address], from Last 3 Months or Most Recently Relevant to Health Maintenance Insurance [facility] Care Teams Edge Finisher Relationship Specialty Start Date End Date Modesto Pennington MD [address] [place] [address] [address] [place] [address] PCP - General Internal Medicine 12/23/18
== END 2024-10-24 14:36 | disposition home or self-care (01) ==
LOC: HO.HGI 14:15
PROVIDERS: Visit Provider Internal Medicine
DX: R10.11 Right upper quadrant pain (principal); Z90.49 Acquired absence of other specified parts of digestive tract; R93.7 Abnormal findings on diagnostic imaging of other parts of musculoskeletal system
CPT/HCPCS: 99214

== ENCOUNTER → 2024-10-24 14:14 | Outpatient (BNVA) | payer OTHER, SELFPAY | PROVIDERS: Visit Provider Internal Medicine ==

== ENCOUNTER 2024-11-04 11:02 | Day surgery (SDC) | payer OTHER, SELFPAY ==
--- OUTSIDE RECORDS SUMMARY | 2024-10-27 06:10 | XMS_ITS | Encounter Summary ---
Author Organization [facility] [employer] [facility] Address [address] [place] [address] Care Team Providers Care Yarn Weigher Name Role Phone Modesto Pennington Primary Care Provider Unavailabl e Encounter Details Date Type Department Care Team Description 09/05/2019 Release of Information Medical Records [address] [place] [address] Abstract, Provider Social History Tobacco Use Types Packs/Day Years Used Date Smoking Tobacco: Never Assessed Sex Assigned at Date Recorded Not on file documented as of this encounter Plan of Treatment Not on file documented as of this encounter Visit Diagnoses Not on filedocumented in this encounter Care Teams Yarn Weigher Relationship Specialty Start Date End Date Modesto Pennington PCP - General Internal Medicine 12/23/18 documented as of this encounter
--- OUTSIDE RECORDS SUMMARY | 2024-10-27 06:10 | XMS_ITS | Continuity of Care Document ---
Author Organization [facility] [address] [place] [address] Phone [phone] Care Team Providers Care Author Name Role Phone Modesto Pennington Care Team Information Co Founder And Ceo + [phone] Problems Active Problems Provider Date Type 2 [...] Medications SIG Qnty Indications Ordering Provider Date Yvldryxxu08jg Tablets 1 by mouth every day 90tabs Jimmy العراقي M.D. 09/28/2023 Dnobcbusz7cb Tablets Take 1 Tablet By Mouth Twice Daily as Needed For Anxiety Modesto Pennington Metformin [id number] Tablets Take 1 Tablet By Mouth Twice Daily Modesto Pennington Jacaowdqxmsfucoytsw22 .5mg Capsules Take 1 Capsule By Mouth Daily Modesto Pennington Falscifuww83na Tablets Take 1 Tablet By Mouth Daily [...] 7.5% TSH With Reflex To FT4 04/11/2023 [facility] TSH With Reflex To FT4 1.88 uIU/mL (0.4-4.2) Basic Metabolic Panel 04/11/2023 [facility] Glucose 176 mg/dL High (70-99) BUN 15 mg/dL (6-20) Creatinine 0.5 mg/dL (0.5-1.0) Sodium 134 mmol/L (133-145) Potassium 4.4 mmol/L (3.6-5.2) Chloride 99 mmol/L (98-107) Bicarbonate 25 mmol/L (22-29) Anion Gap 10 (4-17) Calcium 10.0 mg/dL (8.6-10.5 ) Estimated GFR Creatinine 116 ML/MIN/1.7 3M2 1 Urinary Microalbumin 04/11/2023 [facility] Micro-Albumin <12.0 mg/L (<20) 2 [...]
--- OUTSIDE RECORDS SUMMARY | 2024-10-27 06:10 | XMS_ITS | Encounter Summary ---
Author Organization [facility] Address [address] [place] [address] Care Team Providers Care Brattice Builder Name Role Phone Modesto Pennington MD Primary Care Provider [phone] Encounter Details Date Type Department Care Team (Latest Contact Info) Description 07/04/2024 Lab Requisition [facility] [address] [facility] [phone] Sudhakar Lawson MD [address] [address] Encounter for gynecological examination (general) [...] lesion or malignancy 07/09/2024 4:58 PM EST [facility] General Categorization Negative 07/09/2024 [...] screening system. Technical cytopathology services provided by [facility], at [address] [place] [address] (CLIA # [id number]/Maeve Hobson MD, Extruding Press Operator.) 07/09/2024 4:58 PM [facility] Console Pap Interpretation Reported 07/09/2024 4:58 PM [facility] Brushing/Spatula Cervix uteri structure / Unknown 07/03/2024 07/04/2024 6:55 AM EST us Sudhakar Lawson MD LAB CYTOLOGY ORDERABLES Final Result Performing Organization Address City/State/[facility] Co de Phone Number [facility] [address] [place] [address], documented in this encounter Visit Diagnoses Diagnosis Encounter for gynecological examination (general) (routine) without abnormal findings documented in this encounter Care Teams Brattice Builder Relationship Specialty Start Date End Date Modesto Pennington MD [address] [facility] [address] [place] [address] PCP - General Internal Medicine 12/23/18 documented as of this encounter
--- OUTSIDE RECORDS SUMMARY | 2024-10-27 06:10 | XMS_ITS | Clinical Summary ---
Author Organization [address] Address [address] [place] [address] Phone Care Team Providers Care Ophthalmic Technician Name Role Phone Modesto Pennington MD Primary Care Provider [phone] Allergies No known active allergies Medications Jardiance [...] Team Description 08/25/2024 Telephone Gastroenterology - [address] [phone] Rebecca Jesus [place] Results 08/20/2024 2:17 PM EST Anesthesia Event [facility] Endoscopy [address] [place] [phone] Fortino Strange MD 08/20/2024 1:02 PM EST - 08/20/2024 11:59 PM EST Hospital Encounter [facility] Endoscopy [address] [place] [address] Aleksandr Luna MD McAdams, Megan, CRNA Dasilva, John E, MD Family history of colonic polyps Discharge Disposition: Home or Self Care from Last 3 Months Surgical History Surgery Date Site/Laterality Comments HAND SURGERY Right CHOLECYSTECTOMY TUBAL LIGATION Medical History Medical History Date Comments Hypertension Diabetes mellitus ([facility] V24, [facility] V28) Social History Tobacco Use Types [...] Maintenance Results * COLONOSCOPY Anesthesia - MAC; [facility] ENDOSCOPY (08/20/2024 2:39 PM EST) [...] ? purposes. Narrative 08/20/2024 2:44 PM EST [facility] GI Patient Name: Gen Purcell Procedure [...] Procedure Code(s): ? --- Professional --- ? 43553, Colonoscopy, flexible; with biopsy, single or ? multiple Diagnosis Code(s): ? --- Professional --- ? Z12.11, Encounter for screening for malignant neoplasm ? of colon ? D12.0, Benign neoplasm of cecum ? K57.30, Diverticulosis of large intestine without ? perforation or abscess without bleeding CPT copyright 2020 [employer]. All rights reserved. The codes documented in this report are preliminary and upon special education bus driver review may be revised to meet current compliance requirements. Aleksandr Luna MD 08/20/2024 2:44:15 PM This report has been signed electronically.Aleksandr Luna MD Number of Addenda: 0 Note Initiated On: 08/20/2024 2:07 PM Scope In: Scope Out: ? Endoscopy Department at [facility] - [address] [place] [address], ? [place] [address] Procedure Note Aleksandr Luna MD - 08/20/2024 [facility] GI Patient Name: Gen Purcell Procedure [...] retroflexion views. Procedure Code(s): --- Professional --- 33177, Colonoscopy, flexible; with biopsy, singleor multiple Diagnosis Code(s): --- Professional --- Z12.11, Encounter for screening for malignantneoplasm of colon D12.0, Benign neoplasm of cecum K57.30, Diverticulosis of large intestine without perforation or abscess without bleeding CPT copyright 2020 [employer]. All rights reserved. The codes documented in this report are preliminary and upon special education bus driver reviewmay be revised to meet current compliance requirements. Aleksandr Luna MD 08/20/2024 2:44:15 PM This report has been signed electronically.Aleksandr Luna MD Number of Addenda: 0 Note Initiated On: 08/20/2024 2:07 PM Scope In: Scope Out: Endoscopy Department at [facility] - [address] [place] [phone] IMPRESSION: - The entire examined colon is [...] levels are examined. 08/22/2024 9:14 AM EST [facility] Gross Description A. Large Intestine, Cecum, polyp: Labeled colon cecum polyp . Received in formalin is a 0.4 cm irregular valdez mucosal tissue fragment which is wrapped in paper and submitted in toto in one cassette, one piece, multiple levels on one slide. LAUREN 08/22/2024 9:14 AM EST [facility] Disclaimer Unless otherwise specified, all tissue is 10% NB formalin fixed and paraffin embedded. 08/22/2024 9:14 AM EST [facility] Tissue Cecum structure / Unknown 08/20/2024 2:32 PM EST 08/20/2024 4:00 PM EST Aleksandr Luna MD LAB PATHOLOGY ORDERABLES Fi nal Result [facility] [address] [place] [address], * Pap smear (07/03/2024 12:00 AM EST) Interpretation Negative for intraepithelial lesion or malignancy 07/09/2024 4:58 PM [facility] General Categorization Negative 07/09/2024 4:58 PM [facility] LMP 06/15/2024 07/09/2024 4:58 PM [facility] Specimen Adequacy Satisfactory for evaluation, endocervical/dent sformation zone component absent 07/09/2024 4:58 PM [facility] Pap Methodology Liquid Based Pap Test 07/09/2024 4:58 PM [facility] Disclaimer The Pap test is a screening test which carries an inherent false negative rate. These test results should be correlated with the patient's clinical findings and history. This Pap test was processed using an automated screening system. Technical cytopathology services provided by [facility], at [address] [place] [address] (CLIA # [id number]/Maeve Hobson MD, Development Intern.) 07/09/2024 4:58 PM [facility] Console Pap Interpretation Reported 07/09/2024 4:58 PM [facility] Brushing/Spatula Cervix uteri structure / Unknown 07/03/2024 07/04/2024 6:55 AM EST Sudhakar Lawson MD LAB CYTOLOGY ORDERABLES Final Result [facility] [address] [place] [address], from Last 3 Months or Most Recently Relevant to Health Maintenance Insurance [facility] Care Teams Ophthalmic Technician Relationship Specialty Start Date End Date Modesto Pennington MD [address] [place] [address] [address] [place] [address] PCP - General Internal Medicine 12/23/18
[2024-10-31 12:31] VITALS: BMI 31.3
--- NOTE | 2024-11-03 09:30 | HO.ANESPROP2 ---
HPI - Anesthesia Eval Consult details Narrative: 44yo F for Upper Endoscopy Anesthesia Pre-Procedure Meds Is the patient on any of the following meds?: SGLT2 Inhib PMFSH Active Problems Active Problems: All Active Problems Hypercholesterolemia (Acute) Anxiety (Acute) Fatty liver (Acute) Annual physical exam (Acute) Abnormal CT of thoracic spine (Acute) Colicky RUQ abdominal pain (Acute) Intermittent palpitations (Acute) T2DM (type 2 diabetes mellitus) (Acute) Hypertension (Acute) Past Medical History Medical History (Updated 10/31/24 @ 12:29 by Marni Turner RN) Intermittent palpitations Fatty liver Intermittent palpitations T2DM (type 2 diabetes mellitus) Hypertension Family History Family History Father No problems noted. Mother No problems noted. Surgical History Surgical History Hx of cholecystectomy Hx of colonoscopy History of tubal ligation Social History Social History Housing: House Alcohol intake: current Alcohol intake frequency: does not drink Patient Tobacco Use Status: Never used Tobacco Tobacco use type: Cigarette e-Cigarette/Vaping Use: Never Used Second Hand Smoke Exposure: No service: No Current occupational status: employed Current occupational exposures/hazards: No Cognitive needs: No Hearing needs: No Vision needs: No Meds Allergies Allergy/AdvReac Type Severity Reaction Status Date / Time No Known Allergies Allergy Verified 10/24/24 14:18 Exam Height,Weight and Vital Signs: Height 5 ft 2 in Weight 77.564 kg Assessment and Plan Assessment Anesthesia Assessment: Chart Reviewed
[2024-11-04 11:35] VITALS: BMI 30.6
[2024-11-04] MEDS: Lactated Ringers 1,000 ML 100 ML IVCONT (11:49)
[2024-11-04 11:57] VITALS: BP 134/85; PULSE 93; RESP 18; TEMP 36.7; O2SAT 98
[2024-11-04 11:58] LABS: Glucose, Whole Blood 155 mg/dL (60-115)
--- NOTE | 2024-11-04 12:24 | MHC.SHP ---
Pre-Procedural Eval Section A - 24 Hr Update-Section A only Date of Service: 11/04/24 The patient is an INPATIENT: No The patient has been examined within 24 hours of the surgical procedure. The History & Physical has been completed within 30 days and I have reviewed it.: Yes Section B - Complete if H&P > 30 days Chief Complaint: Right upper quadrant pain Allergies: Allergies Allergy/AdvReac Type Severity Reaction Status Date / Time No Known Allergies Allergy Verified 11/04/24 11:36 Plan Diagnosis/Plan: Unchanged I have reviewed the history and physical and performed a pertinent physical examination on my patient. No changes have occurred unless specified. Time Spent With Patient Time: Total time managing care of this patient today ____ minutes.
--- NOTE | 2024-11-04 13:35 | P.CONAN_ITS ---
[facility] Active Problems Active Problems: All Active Problems Hypercholesterolemia (Acute) Anxiety (Acute) Fatty liver (Acute) Annual physical exam (Acute) Abnormal CT of thoracic spine (Acute) Colicky RUQ abdominal pain (Acute) Intermittent palpitations (Acute) T2DM (type 2 diabetes mellitus) (Acute) Hypertension (Acute) Past Medical History Medical History Intermittent palpitations Fatty liver Intermittent palpitations T2DM (type 2 diabetes mellitus) Hypertension Functional capacity: independent ambulation Patient : No Family History Family History Father No problems noted. Mother No problems noted. Family history of problems with anesthesia: No Surgical History Surgical History Hx of cholecystectomy Hx of colonoscopy History of tubal ligation History of Problems with Anesthesia: No Social History Social History Housing: House Are you a primary rn home care to a significant other at home: No Do you presently have visiting nurse or other home services: No Alcohol intake: current Alcohol intake frequency: does not drink Patient Tobacco Use Status: Never used Tobacco Tobacco use type: Cigarette e-Cigarette/Vaping Use: Never Used Second Hand Smoke Exposure: No Have you been hit, kicked, punched, or otherwise hurt by someone within the past year? If so, by whom?: No Are you DNR?: No Advance Directives: No Advance Directives Information Provided: Yes Poor oral hygiene: No service: No Current occupational status: employed Current occupational exposures/hazards: No Cognitive needs: No Hearing needs: No Vision needs: No Meds Allergies Allergy/AdvReac Type Severity Reaction Status Date / Time No Known Allergies Allergy Verified 11/04/24 11:36 Active Medications: Current Medications Lactated Ringer's (Lr) 1,000 mls @ 100 mls/hr IVCONT .Q10H CHELY Last Admin: 11/04/24 11:49 Dose: 100 mls/hr Exam Height,Weight and Vital Signs: Height 5 ft 2 in Weight 76 kg Last Vital Signs Temp 98.0 F 11/04/24 11:57 Pulse 93 11/04/24 11:57 Resp 18 11/04/24 11:57 BP 134/85 11/04/24 11:57 Pulse Ox 98 11/04/24 11:57 O2 Del Method Room Air 11/04/24 11:57 Pertinent Lab Results Pertinent Lab Results: Laboratory Tests 11/04/24 11:50 POC Glucose 155 H Airway Mallampati Class: I TM Dist: >3cm Neck ROM: Full Denture: Upper Partial: Upper Heart: rrr Lungs: cta Assessment and Plan Final Anesthetic Review Family History of Problems with Anesthesia: No History of Problems with Anesthesia: No ASA Class: II Final Preanesthetic Review: No Changes in Pt Med Stat, Meds/Allgs Chart Reviewed, Consent Obtained/Reviewed and Anes Risks/Benef Reviewed Patient Risk: Low Procedure Risk: Low Anesthetic Plan Anesthetic Plan: MAC: Disposition: Standard PACU
--- NOTE | 2024-11-04 13:39 | P.OP_ITS ---
Operative Note Operative Note Date of Service: 11/04/24 Narrative: Procedure: Esophagogastroduodenoscopy Endoscopist: Maribeth Kim MD Indication: Abd pain Anesthesia Provider: Dr Peter Anesthesia Type: MAC ?? EGD Procedure:?? The procedure, indications, preparation and potential complications were reviewed with the patient, who indicated understanding and gave written informed consent to proceed. A physical exam was performed. The endoscope was introduced through the mouth, and advanced to the second part of duodenum. The mucosa was carefully examined on slow withdrawal of the endoscope. The patient tolerated the procedure well. There were no immediate complications.? ? EGD Findings:? * Esophagus:? Normal mucosa noted in the entire esophagus. The Z line was at 34 cm. Middle and lower esophagus forceps biopsies were obtained to rule out eosinophilic esophagitis. * Stomach:? Focal erythema was noted in proximal antrum along the greater curvature. Random cold forceps gastric biopsies were taken to rule out H Pylori infection. Retroflexion was performed in the cardia. * Duodenum:? Normal mucosa was noted in the whole of the examined duodenum. Cold forceps biopsies were taken from duodenal bulb and second portion of the duodenum to rule out celiac sprue. ? EGD Impressions:? * Normal esophagus (biopsy) * Gastritis (biopsy) * Normal duodenum (biopsy) ?? Recommendations:?? * Follow biopsy results. Our office will call or send a letter with results within 7-10 days. * Start/continue PPI therapy. * Resume anticoagulation today. * If H pylori +, patient will be prescribed eradication therapy followed by test of cure. * Avoid NSAIDs. Above has been reviewed with the patient.
[2024-11-04 13:41] VITALS: BP 120/81; PULSE 93; RESP 20; TEMP 36.3; O2SAT 96
[2024-11-04 13:51] VITALS: BP 136/96; PULSE 78; RESP 20; O2SAT 97
[2024-11-04 14:07] VITALS: BP 131/98; PULSE 78; RESP 20; O2SAT 97
== END 2024-11-04 14:50 | disposition home or self-care (01) ==
PROVIDERS: PCP Internal Medicine; Visit Provider Internal Medicine
PROC: 0DJ08ZZ Inspection of Upper Intestinal Tract, Via Natural or Artificial Opening Endoscopic (ICD-10-PCS; CPT 43235; principal; 2024-11-04 13:10)
DX: R10.11 Right upper quadrant pain (principal); K29.50 Unspecified chronic gastritis without bleeding; R11.0 Nausea; R14.0 Abdominal distension (gaseous); R00.2 Palpitations; I10 Essential (primary) hypertension; K76.0 Fatty (change of) liver, not elsewhere classified; E11.9 Type 2 diabetes mellitus without complications; Z79.84 Long term (current) use of oral hypoglycemic drugs; Z79.899 Other long term (current) drug therapy; Z90.49 Acquired absence of other specified parts of digestive tract; Z98.51 Tubal ligation status
CPT/HCPCS: 43239; 82947; 88305; 88342; J2003; J2704

== ENCOUNTER → 2024-11-04 11:02 | Outpatient (BNV) | payer OTHER, SELFPAY | PROVIDERS: PCP Internal Medicine; Visit Provider Internal Medicine | DX: R10.9 Unspecified abdominal pain (principal); K29.70 Gastritis, unspecified, without bleeding | CPT/HCPCS: 43239 ==

== ENCOUNTER → 2024-12-04 16:00 | Outpatient (BNV) | payer OTHER, SELFPAY | PROVIDERS: Visit Provider Internal Medicine | DX: Z12.31 Encounter for screening mammogram for malignant neoplasm of breast (principal) | CPT/HCPCS: 77063; 77067 ==

== ENCOUNTER 2024-12-04 16:07 | Outpatient (REF) | payer OTHER, SELFPAY ==
--- OUTSIDE RECORDS SUMMARY | 2024-12-04 18:14 | XMS_ITS | Clinical Summary ---
Author Organization [facility] Address [address] [place] [address] Care Team Providers Care Cook Tortilla Name Role Phone Modesto Pennington Primary Care Provider Unavailabl e Social History Tobacco Use Types Packs/Day Years Used Date Smoking Tobacco: Never Assessed Sex Assigned at Date Recorded Not on file Plan of Treatment Health Maintenance Due Date Last Done Comments Covid-19 Vaccine (#1) 1978 TOBACCO CHECK/ADVISE 1996 DTAP/TDAP/TD (1 - Tdap) 1997 CHOLESTEROL SCREENING 1998 CERVICAL CANCER SCREENING 1999 BASELINE HEALTH EXAM 40-64 2018 MAMMOGRAM 2018 BMI CHECK/ADVISE 06/25/2024 INFLUENZA (Season Ended) 2025 PNEUMOCOCCAL VACCINE FOR HIGH RISK PATIENTS (#1) 03/21 Care Teams Cook Tortilla Relationship Specialty Start Date End Date Modesto Pennington PCP - General Internal Medicine 12/23/18
== END 2024-12-04 16:08 | disposition home or self-care (01) ==
LOC: HO.MAMMO 16:07
DX: Z12.31 Encounter for screening mammogram for malignant neoplasm of breast (principal)
CPT/HCPCS: 77063; 77067